=== PATIENT | male | born 1955 | race Caucasian/White ===

== ENCOUNTER 2018-08-10 22:11 | Inpatient (IN) | payer SELFPAY, MEDICARE ==
[2018-08-10] MEDS: DOCUSATE SODIUM 100 MG CAP PO
[~2018-08-10 22:11] MED LIST: HEPARIN SOD (PORCINE) 5000 UNITS/ML VIAL SC
[2018-08-10] MEDS: NS 1,000 ML IV (22:30)
[2018-08-10] MEDS ORDERED: ISOVUE-370 76% 100ML VIAL (Q9967) As Ordered (22:39)
[2018-08-10 22:41] LABS: HEMATOCRIT 50.3 % (42.0-52.0); HEMOGLOBIN 17.2 g/dl (13.5-17.5); MEAN CORPUSCULAR HEMOGLOBIN 32.6 pg (27.0-33.0); MEAN CORPUSCULAR HGB CONC 34.2 g/dl (32.0-36.5); MEAN CORPUSCULAR VOLUME 95.4 fl (80.0-96.0); PLATELET COUNT, AUTOMATED 262 10^3/uL (150-450); RED BLOOD COUNT 5.27 10^6/uL (4.30-6.10); RED CELL DISTRIBUTION WIDTH 12.2 % (11.5-14.5)
[2018-08-10 22:45] LABS: POSITIVE DIFF POS FLAG
[2018-08-10 22:46] LABS: ADD MANUAL DIFFER YES; DIFF SLIDE NUMBER 184
[2018-08-10 22:52] LABS: INR 1.03; PROTHROMBIN TIME 13.6 SECONDS (12.1-14.4)
[2018-08-10 22:53] LABS: PARTIAL THROMBOPLASTIN TIME 25.3 SECONDS (25.4-37.6)
[2018-08-10 23:05] LABS: ALBUMIN 4.6 GM/DL (3.2-5.2); ALBUMIN/GLOBULIN RATIO 1.48 (1.00-1.93); ALKALINE PHOSPHATASE 98 U/L (45-117); ALT/SGPT 35 U/L (12-78); ANION GAP 10 MEQ/L (8-16); AST/SGOT 34 U/L (7-37); BILIRUBIN,DIRECT 0.2 MG/DL (0.0-0.2); BILIRUBIN,TOTAL 0.6 MG/DL (0.2-1.0); BLOOD UREA NITROGEN 10 MG/DL (7-18); CALCIUM LEVEL 9.2 MG/DL (8.8-10.2); CARBON DIOXIDE LEVEL 28 MEQ/L (21-32); CHLORIDE LEVEL 99 MEQ/L (98-107); CREATININE FOR GFR 0.86 MG/DL (0.70-1.30); ETHYL ALCOHOL (ETHANOL) 0.178 % (0.000-0.010); GLOMERULAR FILTRATION RATE > 60.0 (>49); GLUCOSE, FASTING 111 MG/DL (70-100); LIPASE 89 U/L (73-393); POTASSIUM SERUM 3.7 MEQ/L (3.5-5.1); SODIUM LEVEL 137 MEQ/L (136-145); TOTAL PROTEIN 7.7 GM/DL (6.4-8.2)
[2018-08-10 23:06] LABS: ATYPICAL LYMPH 9 % (0-5); EOSINOPHILS 3 % (0-5); LYMPHOCYTES 28 % (16-52); MONOCYTES 4 % (0-8); NEUTROPHILS 56 % (35-75); PLATELET ESTIMATE NORMAL (NORMAL)
[2018-08-10] MEDS ORDERED: FLUMAZENIL 0.5 MG/5 ML VIAL As Ordered (23:09)
[2018-08-10] MEDS ORDERED: MIDAZOLAM INJ 2 MG/2 ML VIAL (J2250) As Ordered ×4 (23:09→23:29)
[2018-08-10] MEDS ORDERED: LIDOCAINE 1% MDV 20ML VIAL As Ordered (23:10)
[2018-08-10] MEDS ORDERED: BISACODYL 10 MG SUPP PR (23:15)
[2018-08-10] MEDS ORDERED: PERCOCET 5MG/325MG TAB PO (23:15)
[2018-08-10] MEDS ORDERED: ONDANSETRON 4MG/2ML VIAL (J2405) IV (23:15)
[2018-08-10] MEDS ORDERED: LEVALBUTEROL 1.25 MG/0.5 ML CONCENTRATE NEB NEB (23:15)
[2018-08-10] MEDS: LIDOCAINE 1% MDV 20ML VIAL SC (23:35)
[2018-08-10] MEDS: MIDAZOLAM INJ 2 MG/2 ML VIAL (J2250) IV (23:35)
[2018-08-11] MEDS: KETOROLAC 30 MG/ML VIAL (J1885) IV (00:01)
[2018-08-11] MEDS: KCL 20MEQ IN D5/NS 1000ML 1,000 ML IV (00:06)
[2018-08-11 00:24] LABS: ABG BASE EXCESS -6.7 (-2.0-2.0); ABG HCO3 23.1 MEQ/L (22.0-26.0); ABG O2 SATURATION 99.6 % (95.0-99.0); ABG STANDARD HCO3 19.2 MEQ/L (22.0-26.0); ABG TOTAL CO2 25.1 MEQ/L (23.0-31.0)
[2018-08-11 00:26] LABS: ABG PARTIAL PRESSURE CO2 64.2 mmHg (35.0-45.0); ABG pH (ARTERIAL) 7.174 UNITS (7.350-7.450)
[2018-08-11] MEDS ORDERED: FLUMAZENIL 0.5 MG/5 ML VIAL As Ordered (00:35)
[2018-08-11] MEDS: FLUMAZENIL 0.5 MG/5 ML VIAL IV (00:45)
[2018-08-11 01:51] LABS: AMYLASE 42 U/L (25-115)
[2018-08-11 01:54] LABS: AMMONIA 36 uMOL/L (<32)
[2018-08-11 01:54] LABS: ABG BASE EXCESS -4.4 (-2.0-2.0); ABG HCO3 21.9 MEQ/L (22.0-26.0); ABG O2 SATURATION 94.4 % (95.0-99.0); ABG PARTIAL PRESSURE CO2 44.8 mmHg (35.0-45.0); ABG STANDARD HCO3 20.8 MEQ/L (22.0-26.0); ABG TOTAL CO2 23.3 MEQ/L (23.0-31.0); ABG pH (ARTERIAL) 7.308 UNITS (7.350-7.450)
[2018-08-11] MEDS ORDERED: LEVALBUTEROL 1.25 MG/0.5 ML CONCENTRATE NEB NEB (02:00)
[2018-08-11] MEDS ORDERED: LORazepam 2 MG/ML VIAL (J2060) IV ×2 (02:30→03:00)
[2018-08-11 04:33] LABS: BASO % 0.2 % (0.0-1.0); EOS % 0.1 % (0.0-3.0); HEMATOCRIT 42.9 % (42.0-52.0); IMMATURE GRANULOCYTE % 0.5 % (0-3.0); LYMPH % 7.8 % (24.0-44.0); MEAN CORPUSCULAR HEMOGLOBIN 32.2 pg (27.0-33.0); MEAN CORPUSCULAR HGB CONC 33.8 g/dl (32.0-36.5); MEAN CORPUSCULAR VOLUME 95.1 fl (80.0-96.0); MONO # 1.4 10^3/uL (0.0-0.8); MONO % 10.7 % (0.0-5.0); NEUTROPHILS # 10.6 10^3/uL (1.8-7.7); NEUTROPHILS % 80.7 % (36.0-66.0); PLATELET COUNT, AUTOMATED 209 10^3/uL (150-450); RED BLOOD COUNT 4.51 10^6/uL (4.30-6.10); RED CELL DISTRIBUTION WIDTH 12.4 % (11.5-14.5); WHITE BLOOD COUNT 13.1 10^3/uL (4.0-10.0)
[2018-08-11 04:39] LABS: HEMOGLOBIN 14.5 g/dl (13.5-17.5)
[2018-08-11] MEDS: MULTIVITAMIN -ADULT INJECTION 10 ML, THIAMINE INJection 100 MG, FOLIC ACID 1 MG in NS 1... IV (04:49)
[2018-08-11 04:54] LABS: ANION GAP 8 MEQ/L (8-16); BLOOD UREA NITROGEN 11 MG/DL (7-18); CALCIUM LEVEL 7.9 MG/DL (8.8-10.2); CARBON DIOXIDE LEVEL 25 MEQ/L (21-32); CHLORIDE LEVEL 105 MEQ/L (98-107); CREATININE FOR GFR 0.68 MG/DL (0.70-1.30); GLOMERULAR FILTRATION RATE > 60.0 (>49); GLUCOSE, FASTING 129 MG/DL (70-100); POTASSIUM SERUM 4.4 MEQ/L (3.5-5.1); SODIUM LEVEL 138 MEQ/L (136-145)
[2018-08-11] MEDS: OXAZEPAM 15 MG CAP PO ×3 (06:14→18:22)
[2018-08-11 06:19] LABS: ABG BASE EXCESS -0.9 (-2.0-2.0); ABG HCO3 24.5 MEQ/L (22.0-26.0); ABG O2 SATURATION 95.4 % (95.0-99.0); ABG PARTIAL PRESSURE CO2 42.9 mmHg (35.0-45.0); ABG PARTIAL PRESSURE O2 76.5 mmHg (75.0-100.0); ABG STANDARD HCO3 23.7 MEQ/L (22.0-26.0); ABG TOTAL CO2 25.8 MEQ/L (23.0-31.0); ABG pH (ARTERIAL) 7.374 UNITS (7.350-7.450)
[2018-08-11] MEDS: IPRATROPIUM 0.5MG/ALBUTEROL 2.5MG INH SOL UD 3ML (DUONEB)(J7620) NEB ×3 (07:41→19:43)
[2018-08-11] MEDS ORDERED: MOM 30ML SUSPENSION UDC PO ×2 (09:00)
[2018-08-11] MEDS: NICOTINE 21MG/24HR 1 EA TRANSDERMAL TD (09:00)
[2018-08-11] MEDS: PANTOPRAZOLE 40MG TAB (PROTONIX) PO (09:02)
[2018-08-11] MEDS: DOCUSATE SODIUM 100 MG CAP PO ×2 (09:02→21:20)
[2018-08-11] MEDS: D5W/LR 1,000 ML IV ×2 (09:03→22:55)
[2018-08-11 11:50] LABS: HEMATOCRIT 40.9 % (42.0-52.0); HEMOGLOBIN 13.8 g/dl (13.5-17.5); MEAN CORPUSCULAR HEMOGLOBIN 32.4 pg (27.0-33.0); MEAN CORPUSCULAR HGB CONC 33.7 g/dl (32.0-36.5); PLATELET COUNT, AUTOMATED 202 10^3/uL (150-450); RED BLOOD COUNT 4.26 10^6/uL (4.30-6.10); RED CELL DISTRIBUTION WIDTH 12.7 % (11.5-14.5); WHITE BLOOD COUNT 8.8 10^3/uL (4.0-10.0)
[2018-08-11] MEDS: NORCO, ANEXSIA 5/325MG TABLET (HYDROcodone/ACETAMINOPHEN) PO (15:23)
[2018-08-11] MEDS: THIAMINE 100 MG TAB PO (21:21)
[2018-08-11] MEDS: PERCOCET 5MG/325MG TAB PO (21:21)
[2018-08-12] MEDS: OXAZEPAM 15 MG CAP PO ×4 (00:13→20:13)
[2018-08-12] MEDS: IPRATROPIUM 0.5MG/ALBUTEROL 2.5MG INH SOL UD 3ML (DUONEB)(J7620) NEB ×4 (01:58→20:07)
[2018-08-12] MEDS: PERCOCET 5MG/325MG TAB PO ×2 (04:06→15:45)
[2018-08-12 04:13] LABS: BASO % 0.4 % (0.0-1.0); EOS # 0.1 10^3/uL (0.0-0.50); EOS % 1.7 % (0.0-3.0); HEMATOCRIT 38.2 % (42.0-52.0); HEMOGLOBIN 12.8 g/dl (13.5-17.5); IMMATURE GRANULOCYTE % 0.1 % (0-3.0); LYMPH # 1.2 10^3/uL (1.5-4.5); MEAN CORPUSCULAR HGB CONC 33.5 g/dl (32.0-36.5); MEAN CORPUSCULAR VOLUME 95.5 fl (80.0-96.0); MONO # 0.7 10^3/uL (0.0-0.8); MONO % 7.9 % (0.0-5.0); NEUTROPHILS # 6.4 10^3/uL (1.8-7.7); NEUTROPHILS % 75.9 % (36.0-66.0); PLATELET COUNT, AUTOMATED 163 10^3/uL (150-450); RED CELL DISTRIBUTION WIDTH 12.3 % (11.5-14.5); WHITE BLOOD COUNT 8.4 10^3/uL (4.0-10.0)
[2018-08-12 04:32] LABS: ANION GAP 4 MEQ/L (8-16); BLOOD UREA NITROGEN 12 MG/DL (7-18); CALCIUM LEVEL 7.8 MG/DL (8.8-10.2); CARBON DIOXIDE LEVEL 30 MEQ/L (21-32); CHLORIDE LEVEL 102 MEQ/L (98-107); CREATININE FOR GFR 0.59 MG/DL (0.70-1.30); GLOMERULAR FILTRATION RATE > 60.0 (>49); GLUCOSE, FASTING 131 MG/DL (70-100); POTASSIUM SERUM 3.7 MEQ/L (3.5-5.1); SODIUM LEVEL 136 MEQ/L (136-145)
[2018-08-12] MEDS ORDERED: THIAMINE 100 MG TAB PO (09:00)
[2018-08-12] MEDS: NICOTINE 21MG/24HR 1 EA TRANSDERMAL TD (09:09)
[2018-08-12] MEDS: DOCUSATE SODIUM 100 MG CAP PO ×2 (09:11→20:14)
[2018-08-12] MEDS: PANTOPRAZOLE 40MG TAB (PROTONIX) PO (09:12)
[2018-08-12] MEDS: FOLIC ACID 1 MG TAB PO (09:12)
[2018-08-12] MEDS: MULTIVITAMINS/MINERALS THERAP 1 TAB PO (09:12)
[2018-08-12] MEDS: THIAMINE 100 MG TAB PO ×2 (09:12→20:14)
[2018-08-12] MEDS: ACETAMINOPHEN TAB 650MG DOSE (2X325MG) PO ×2 (12:56→19:17)
[2018-08-12] MEDS: HEPARIN SOD (PORCINE) 5000 UNITS/ML VIAL SQ ×2 (12:56→20:14)
[2018-08-12] MEDS: cefTRIAXone SOD 1 GM in D5W MINI-BAG PLUS 50 ML IV (14:56)
[2018-08-12] MEDS: AZITHROMYCIN INJ 500 MG, VIAL MATE ADAPTER 1 EACH in D5W 250 ML IV (15:40)
[2018-08-13] MEDS: IPRATROPIUM 0.5MG/ALBUTEROL 2.5MG INH SOL UD 3ML (DUONEB)(J7620) NEB ×4 (02:00→19:31)
[2018-08-13 04:59] LABS: BASO # 0.1 10^3/uL (0.0-0.2); BASO % 0.5 % (0.0-1.0); EOS # 0.1 10^3/uL (0.0-0.50); IMMATURE GRANULOCYTE % 0.2 % (0-3.0); LYMPH # 0.9 10^3/uL (1.5-4.5); LYMPH % 7.9 % (24.0-44.0); MEAN CORPUSCULAR HEMOGLOBIN 32.1 pg (27.0-33.0); MEAN CORPUSCULAR HGB CONC 34.2 g/dl (32.0-36.5); MEAN CORPUSCULAR VOLUME 93.8 fl (80.0-96.0); MONO # 0.7 10^3/uL (0.0-0.8); MONO % 6.7 % (0.0-5.0); NEUTROPHILS % 83.7 % (36.0-66.0); PLATELET COUNT, AUTOMATED 155 10^3/uL (150-450); RED BLOOD COUNT 4.05 10^6/uL (4.30-6.10); RED CELL DISTRIBUTION WIDTH 12.1 % (11.5-14.5); WHITE BLOOD COUNT 10.7 10^3/uL (4.0-10.0)
[2018-08-13 05:17] LABS: ANION GAP 6 MEQ/L (8-16); BLOOD UREA NITROGEN 9 MG/DL (7-18); CALCIUM LEVEL 7.9 MG/DL (8.8-10.2); CARBON DIOXIDE LEVEL 27 MEQ/L (21-32); CHLORIDE LEVEL 101 MEQ/L (98-107); CREATININE FOR GFR 0.48 MG/DL (0.70-1.30); GLOMERULAR FILTRATION RATE > 60.0 (>49); GLUCOSE, FASTING 110 MG/DL (70-100); POTASSIUM SERUM 3.9 MEQ/L (3.5-5.1); SODIUM LEVEL 134 MEQ/L (136-145)
[2018-08-13] MEDS: OXAZEPAM 15 MG CAP PO ×3 (05:51→20:47)
[2018-08-13] MEDS: PERCOCET 5MG/325MG TAB PO ×2 (07:46→15:53)
[2018-08-13] MEDS: MULTIVITAMINS/MINERALS THERAP 1 TAB PO (08:57)
[2018-08-13] MEDS: DOCUSATE SODIUM 100 MG CAP PO ×2 (08:57→20:47)
[2018-08-13] MEDS: PANTOPRAZOLE 40MG TAB (PROTONIX) PO (08:57)
[2018-08-13] MEDS: FOLIC ACID 1 MG TAB PO (08:58)
[2018-08-13] MEDS: HEPARIN SOD (PORCINE) 5000 UNITS/ML VIAL SQ ×2 (08:58→20:47)
[2018-08-13] MEDS: THIAMINE 100 MG TAB PO ×2 (08:58→20:47)
[2018-08-13] MEDS: NICOTINE 21MG/24HR 1 EA TRANSDERMAL TD (08:59)
[2018-08-13] MEDS: AMPICILLIN SOD/SULBACTAM SOD 3 GM in D5W MINI-BAG PLUS 100 ML IV ×3 (10:52→20:48)
[2018-08-13] MEDS: AZITHROMYCIN INJ 500 MG, VIAL MATE ADAPTER 1 EACH in D5W 250 ML IV (15:46)
[2018-08-14] MEDS: IPRATROPIUM 0.5MG/ALBUTEROL 2.5MG INH SOL UD 3ML (DUONEB)(J7620) NEB ×4 (02:00→20:10)
[2018-08-14 04:50] LABS: BASO % 0.3 % (0.0-1.0); EOS # 0.4 10^3/uL (0.0-0.50); EOS % 3.9 % (0.0-3.0); HEMATOCRIT 36.2 % (42.0-52.0); HEMOGLOBIN 12.4 g/dl (13.5-17.5); IMMATURE GRANULOCYTE % 0.3 % (0-3.0); LYMPH % 11.4 % (24.0-44.0); MEAN CORPUSCULAR HEMOGLOBIN 32.3 pg (27.0-33.0); MEAN CORPUSCULAR HGB CONC 34.3 g/dl (32.0-36.5); MEAN CORPUSCULAR VOLUME 94.3 fl (80.0-96.0); MONO # 0.6 10^3/uL (0.0-0.8); MONO % 6.7 % (0.0-5.0); NEUTROPHILS # 6.9 10^3/uL (1.8-7.7); NEUTROPHILS % 77.4 % (36.0-66.0); PLATELET COUNT, AUTOMATED 168 10^3/uL (150-450); RED BLOOD COUNT 3.84 10^6/uL (4.30-6.10); RED CELL DISTRIBUTION WIDTH 12.1 % (11.5-14.5); WHITE BLOOD COUNT 8.9 10^3/uL (4.0-10.0)
[2018-08-14] MEDS: AMPICILLIN SOD/SULBACTAM SOD 3 GM in D5W MINI-BAG PLUS 100 ML IV ×4 (04:50→21:19)
[2018-08-14] MEDS: OXAZEPAM 15 MG CAP PO ×3 (04:51→21:14)
[2018-08-14] MEDS: PERCOCET 5MG/325MG TAB PO ×3 (04:53→21:18)
[2018-08-14 05:18] LABS: ANION GAP 6 MEQ/L (8-16); BLOOD UREA NITROGEN 12 MG/DL (7-18); CALCIUM LEVEL 7.9 MG/DL (8.8-10.2); CARBON DIOXIDE LEVEL 29 MEQ/L (21-32); CHLORIDE LEVEL 100 MEQ/L (98-107); CREATININE FOR GFR 0.56 MG/DL (0.70-1.30); GLOMERULAR FILTRATION RATE > 60.0 (>49); GLUCOSE, FASTING 92 MG/DL (70-100); POTASSIUM SERUM 3.7 MEQ/L (3.5-5.1); SODIUM LEVEL 135 MEQ/L (136-145)
[2018-08-14 05:49] LABS: BEDSIDE GLUCOSE 117 MG/DL (80-115)
[2018-08-14] MEDS: DOCUSATE SODIUM 100 MG CAP PO ×2 (09:00→21:14)
[2018-08-14] MEDS: PANTOPRAZOLE 40MG TAB (PROTONIX) PO (09:27)
[2018-08-14] MEDS: FOLIC ACID 1 MG TAB PO (09:27)
[2018-08-14] MEDS: MULTIVITAMINS/MINERALS THERAP 1 TAB PO (09:27)
[2018-08-14] MEDS: NICOTINE 21MG/24HR 1 EA TRANSDERMAL TD (09:27)
[2018-08-14] MEDS: THIAMINE 100 MG TAB PO ×2 (09:27→21:14)
[2018-08-14] MEDS: HEPARIN SOD (PORCINE) 5000 UNITS/ML VIAL SQ ×2 (09:28→21:14)
[2018-08-14] MEDS: AZITHROMYCIN INJ 500 MG, VIAL MATE ADAPTER 1 EACH in D5W 250 ML IV (16:26)
[2018-08-15] MEDS: IPRATROPIUM 0.5MG/ALBUTEROL 2.5MG INH SOL UD 3ML (DUONEB)(J7620) NEB ×4 (00:53→19:45)
[2018-08-15] MEDS: AMPICILLIN SOD/SULBACTAM SOD 3 GM in D5W MINI-BAG PLUS 100 ML IV (04:47)
[2018-08-15] MEDS: OXAZEPAM 15 MG CAP PO ×3 (04:59→22:25)
[2018-08-15] MEDS: PERCOCET 5MG/325MG TAB PO ×2 (04:59→22:25)
[2018-08-15 05:15] LABS: BASO % 0.6 % (0.0-1.0); EOS # 0.4 10^3/uL (0.0-0.50); EOS % 5.1 % (0.0-3.0); HEMOGLOBIN 12.4 g/dl (13.5-17.5); IMMATURE GRANULOCYTE % 0.3 % (0-3.0); LYMPH # 1.1 10^3/uL (1.5-4.5); LYMPH % 15.5 % (24.0-44.0); MEAN CORPUSCULAR HEMOGLOBIN 32.4 pg (27.0-33.0); MEAN CORPUSCULAR HGB CONC 34.4 g/dl (32.0-36.5); MONO # 0.6 10^3/uL (0.0-0.8); MONO % 8.3 % (0.0-5.0); NEUTROPHILS # 5.1 10^3/uL (1.8-7.7); NEUTROPHILS % 70.2 % (36.0-66.0); PLATELET COUNT, AUTOMATED 189 10^3/uL (150-450); RED BLOOD COUNT 3.83 10^6/uL (4.30-6.10); RED CELL DISTRIBUTION WIDTH 12.2 % (11.5-14.5); WHITE BLOOD COUNT 7.3 10^3/uL (4.0-10.0)
[2018-08-15 05:35] LABS: ANION GAP 3 MEQ/L (8-16); BLOOD UREA NITROGEN 13 MG/DL (7-18); C REACTIVE PROTEIN QUANTITATIV 7.37 MG/DL (0.00-0.30); CALCIUM LEVEL 7.9 MG/DL (8.8-10.2); CARBON DIOXIDE LEVEL 32 MEQ/L (21-32); CHLORIDE LEVEL 100 MEQ/L (98-107); CREATININE FOR GFR 0.46 MG/DL (0.70-1.30); GLOMERULAR FILTRATION RATE > 60.0 (>49); GLUCOSE, FASTING 81 MG/DL (70-100); POTASSIUM SERUM 3.6 MEQ/L (3.5-5.1); SODIUM LEVEL 135 MEQ/L (136-145)
[2018-08-15] MEDS: HEPARIN SOD (PORCINE) 5000 UNITS/ML VIAL SQ ×2 (10:00→20:10)
[2018-08-15] MEDS: AZITHROMYCIN 250 MG TAB PO (10:00)
[2018-08-15] MEDS: NICOTINE 21MG/24HR 1 EA TRANSDERMAL TD (10:00)
[2018-08-15] MEDS: MULTIVITAMINS/MINERALS THERAP 1 TAB PO (10:00)
[2018-08-15] MEDS: FOLIC ACID 1 MG TAB PO (10:01)
[2018-08-15] MEDS: PANTOPRAZOLE 40MG TAB (PROTONIX) PO (10:01)
[2018-08-15] MEDS: DOCUSATE SODIUM 100 MG CAP PO ×2 (10:01→20:09)
[2018-08-15] MEDS: AUGMENTIN 875 MG TAB PO ×2 (10:01→20:10)
[2018-08-15] MEDS: THIAMINE 100 MG TAB PO ×2 (10:01→20:09)
[2018-08-15] MEDS: guaiFENesin ER 600 MG TAB PO (18:40)
[2018-08-16] MEDS: IPRATROPIUM 0.5MG/ALBUTEROL 2.5MG INH SOL UD 3ML (DUONEB)(J7620) NEB ×2 (01:02→07:40)
[2018-08-16 05:08] LABS: BASO # 0.1 10^3/uL (0.0-0.2); BASO % 0.8 % (0.0-1.0); EOS # 0.3 10^3/uL (0.0-0.50); EOS % 5.1 % (0.0-3.0); HEMOGLOBIN 12.7 g/dl (13.5-17.5); IMMATURE GRANULOCYTE % 0.3 % (0-3.0); LYMPH # 1.2 10^3/uL (1.5-4.5); LYMPH % 18.5 % (24.0-44.0); MEAN CORPUSCULAR HEMOGLOBIN 32.6 pg (27.0-33.0); MEAN CORPUSCULAR HGB CONC 34.3 g/dl (32.0-36.5); MEAN CORPUSCULAR VOLUME 94.9 fl (80.0-96.0); MONO # 0.7 10^3/uL (0.0-0.8); MONO % 10.1 % (0.0-5.0); NEUTROPHILS # 4.2 10^3/uL (1.8-7.7); NEUTROPHILS % 65.2 % (36.0-66.0); PLATELET COUNT, AUTOMATED 215 10^3/uL (150-450); RED CELL DISTRIBUTION WIDTH 12.1 % (11.5-14.5); WHITE BLOOD COUNT 6.4 10^3/uL (4.0-10.0)
[2018-08-16 05:25] LABS: ANION GAP 6 MEQ/L (8-16); BLOOD UREA NITROGEN 13 MG/DL (7-18); CALCIUM LEVEL 8.1 MG/DL (8.8-10.2); CARBON DIOXIDE LEVEL 28 MEQ/L (21-32); CHLORIDE LEVEL 102 MEQ/L (98-107); CREATININE FOR GFR 0.53 MG/DL (0.70-1.30); GLOMERULAR FILTRATION RATE > 60.0 (>49); GLUCOSE, FASTING 86 MG/DL (70-100); POTASSIUM SERUM 3.8 MEQ/L (3.5-5.1); SODIUM LEVEL 136 MEQ/L (136-145)
[2018-08-16] MEDS: OXAZEPAM 15 MG CAP PO (06:14)
[2018-08-16] MEDS: HEPARIN SOD (PORCINE) 5000 UNITS/ML VIAL SQ (08:28)
[2018-08-16] MEDS: NICOTINE 21MG/24HR 1 EA TRANSDERMAL TD (08:28)
[2018-08-16] MEDS: guaiFENesin ER 600 MG TAB PO (08:29)
[2018-08-16] MEDS: MULTIVITAMINS/MINERALS THERAP 1 TAB PO (08:29)
[2018-08-16] MEDS: FOLIC ACID 1 MG TAB PO (08:29)
[2018-08-16] MEDS: THIAMINE 100 MG TAB PO (08:29)
[2018-08-16] MEDS: AZITHROMYCIN 250 MG TAB PO (08:29)
[2018-08-16] MEDS: PANTOPRAZOLE 40MG TAB (PROTONIX) PO (08:29)
[2018-08-16] MEDS: DOCUSATE SODIUM 100 MG CAP PO (08:31)
[2018-08-16] MEDS: PERCOCET 5MG/325MG TAB PO (08:31)
[2018-08-16] MEDS: AUGMENTIN 875 MG TAB PO (09:55)
[2018-08-16] MEDS: FLUBLOK(EGG FREE)(QUAD)INFLUENZA VACC 0.5ML SYRINGE (90682)18YRS&OLDER IM (09:59)
== END 2018-08-16 12:27 | disposition home or self-care (01) | DRG 135 ==
LOC: M ICU 08-15 20:27 → M ED 22:11 → M ICU 23:02
PROC: 0W9930Z Drainage of Right Pleural Cavity with Drainage Device, Percutaneous Approach (ICD-10-PCS; principal; 2018-08-10)
DX: S27.0XXA Traumatic pneumothorax, initial encounter (principal); J96.01 Acute respiratory failure with hypoxia; J69.0 Pneumonitis due to inhalation of food and vomit; S22.41XA Multiple fractures of ribs, right side, initial encounter for closed fracture; J44.9 Chronic obstructive pulmonary disease, unspecified; J96.02 Acute respiratory failure with hypercapnia; F10.229 Alcohol dependence with intoxication, unspecified; K59.00 Constipation, unspecified; F17.200 Nicotine dependence, unspecified, uncomplicated; R33.9 Retention of urine, unspecified; G47.33 Obstructive sleep apnea (adult) (pediatric); Z88.8 Allergy status to other drugs, medicaments and biological substances; Z91.19 Patient's noncompliance with other medical treatment and regimen; W17.89XA Other fall from one level to another, initial encounter; Y92.009 Unspecified place in unspecified non-institutional (private) residence as the place of occurrence of the external cause; T79.7XXA Traumatic subcutaneous emphysema, initial encounter

== ENCOUNTER → 2018-08-29 | Outpatient (CLI) | payer MEDICARE, SELFPAY ==
[~2018-08-29] MED LIST changes: +AMOX875T2 PO; +AZIT-12 PO; -HEPARIN SOD (PORCINE) 5000 UNITS/ML VIAL SC; +PERCOCET PO
--- NOTE | 2018-08-29 13:35 | REP ---
Chest x-ray: Two views. History: Pneumothorax. Comparison chest x-ray: August 16, 2018. Findings: There are fractures involving the posterolateral 8th and 9th ribs on the right side again noted. There is some pleural thickening at the right base laterally. Right hemidiaphragm is tented and slightly elevated as before. Minimal linear fibrosis is seen in the right base. Lung paniagua are otherwise clear. There is no evidence of pneumothorax on either side. There is straightening of the normal thoracic kyphosis on the lateral radiograph again noted. Heart is not enlarged. Impression: No pneumothorax seen. Pleuroparenchymal fibrotic changes right base. Healing right-sided rib fractures. Electronically Signed by Aaron Valladares MD 08/29/2018 03:07 P
== END ==
LOC: M SMT 09:31
PROVIDERS: ATTEND Thoracic Surgery (Cardiothoracic Vascular Surgery)
DX: J93.9 Pneumothorax, unspecified (principal); J84.10 Pulmonary fibrosis, unspecified; S22.42XD Multiple fractures of ribs, left side, subsequent encounter for fracture with routine healing; X58.XXXD Exposure to other specified factors, subsequent encounter; Y92.9 Unspecified place or not applicable

== ENCOUNTER 2020-10-21 10:03 | Inpatient (IN) | payer MEDICARE, OTHER, SELFPAY ==
[~2020-10-21] VITALS: Ht 167.6 cm; Wt 53.6 kg
[2020-10-21] MEDS ORDERED: NS 1,000 ML IV SCH (10:30)
[2020-10-21] MEDS: MORPHINE 4 MG/ML 1ML VIAL/SYRINGE (J2270) IV PRN ×2 (10:41→11:03)
[2020-10-21] MEDS ORDERED: ISOVUE-370 76% 100ML VIAL As Ordered ONE (10:49)
[2020-10-21 10:58] LABS: BASO # 0.1 10^3/uL (0.0-0.2); BASO % 0.5 % (0.0-1.0); EOS % 0.2 % (0.0-3.0); HEMATOCRIT 51.4 % (42.0-52.0); HEMOGLOBIN 17.1 g/dl (13.5-17.5); LYMPH # 1.5 10^3/uL (1.5-5.0); LYMPH % 8.5 % (24.0-44.0); MEAN CORPUSCULAR HEMOGLOBIN 31.5 pg (27.0-33.0); MEAN CORPUSCULAR HGB CONC 33.3 g/dl (32.0-36.5); MEAN CORPUSCULAR VOLUME 94.7 fl (80.0-96.0); MONO # 1.2 10^3/uL (0.0-0.8); MONO % 7.3 % (0.0-5.0); NEUTROPHILS # 14.2 10^3/uL (1.5-8.5); NEUTROPHILS % 82.9 % (36.0-66.0); PLATELET COUNT, AUTOMATED 280 10^3/uL (150-450); RED BLOOD COUNT 5.43 10^6/uL (4.30-6.10); WHITE BLOOD COUNT 17.1 10^3/uL (4.0-10.0)
--- NOTE | 2020-10-21 11:12 | REP ---
INDICATION: incarcerated right inguinal hernia. COMPARISON: None TECHNIQUE: Axial contrast-enhanced images from the lung bases to the pubic symphysis using 100 cc Isovue 370 intravenous contrast material. Coronal and sagittal reformations obtained. This CT examination was performed using the following dose reduction techniques: Automated exposure control, adjustment of mA and/or kv according to the patient's size, and the use of iterative reconstruction technique. FINDINGS: Dilated fluid-filled loops of small bowel with wall thickening and perienteric stranding are identified within the lower pelvis and extend into a moderate to large right inguinal hernia containing above-mentioned loops of bowel as well as mesenteric fat and moderate fluid. Are suspicious for obstructed incarcerated right inguinal hernia causing early bowel obstruction. The colon and remainder of the small bowel within the abdomen and upper pelvis appear essentially normal. No free air. No drainable collection/abscess. Liver, spleen, pancreas, gallbladder, bilateral adrenal glands and kidneys are normal. Further evaluation of the pelvis demonstrates distended bladder and prostatomegaly having a heterogeneous appearance with calcifications and findings to suggest prior prostate surgery. No free air. No significant adenopathy. No significant focal ascites. Atherosclerotic changes to the aorta and vasculature noted without aneurysm or dissection. Musculoskeletal structures demonstrate degenerative changes including chronic L5 spondylolysis without acute osseous abnormality. IMPRESSION: 1. Moderate to large right inguinal hernia including mesenteric fat, fluid, and dilated small bowel suggesting incarcerated hernia causing associated bowel obstruction with dilated loops of small bowel identified in the lower pelvis. No associated free air or significant free fluid/abscess. 2. Moderately distended bladder with evidence for heterogeneous mildly enlarged prostate gland. <Electronically signed by Remi Garrett > 10/21/20 [id number]
[2020-10-21] MEDS ORDERED: LABETALOL 100MG/20ML VIAL IV STA (11:19)
--- OUTSIDE RECORDS SUMMARY | 2020-10-21 11:22 | CCD ---
Author Author [facility] Organization [facility] Address Unknown Phone Unavailable Support Name Relationship Address Phone [facility] [place] [address] [facility] Next Of Kin [address] [place] [address] MEHNAZ HODGES Next Of Kin [address] [place] [address] [place] Next Of Kin Unknown Unavailable Re-disclosure Warning The records that you are about to access may contain information from federally-assisted alcohol or drug abuse programs. If such information is present, then the following federally mandated warning applies: This information has been disclosed to you from records protected by federal confidentiality rules (42 CFR part 2). The federal rules prohibit you from making any further disclosure of this information unless further disclosure is expressly permitted by the written consent of the person to whom it pertains or as otherwise permitted by 42 CFR part 2. A general authorization for the release of medical or other information is NOT sufficient for this purpose. The Federal rules restrict any use of the information to criminally investigate or prosecute any alcohol or drug abuse patient.The records that you are about to access may contain highly sensitive health information, the redisclosure of which is protected by Article 27-F of the [facility] Public Health law. If you continue you may have access to information: Regarding HIV / AIDS; Provided by facilities licensed or operated by the [facility] Office of Mental Health; or Provided by the [facility] Office for People With Developmental Disabilities. If such information is present, then the following [facility] mandated warning applies: This information has been disclosed to you from confidential records which are protected by state law. State law prohibits you from making any further disclosure of this information without the specific written consent of the person to whom it pertains, or as otherwise permitted by law. Any unauthorized further disclosure in violation of state law may result in a fine or custodial sentence or both. A general authorization for the release of medical or other information is NOT sufficient authorization for further disc losure. Family History Family Member Name Family Member Gender Family Member Status Date o f Status Description Data Source(s) Unknown Unknown Problem [facility] ([facility]) Insurance Providers Payer name Policy type / Coverage type Policy ID Covered green party ID Covered green party's relationship to chaney Policy Chaney Plan Information MEDICARE [id number] SP [id number] A SELF PAY ONLY [id number] [employer] [facility] [id number] [facility] [id number] MEDICAID [id number] S [id number] MEDICARE C [id number] S [id number] [place] Medicare Primary Self SELF PAY ONLY UNAVAILABLE UNAV AILABLE SELF PAY UNAVAILABLE SP UNAVAILA BLE MEDICAID [id number] SP [id number]
[2020-10-21] MEDS ORDERED: LORazepam 2 MG/ML VIAL IV STA (11:26)
[2020-10-21 12:36] LABS: RSV AMPLIFICATION NEGATIVE (NEGATIVE)
--- NOTE | 2020-10-21 13:22 | HPEPDOC ---
[facility] Medical History & Physical Date of Admission Oct 21, 2020 Date of Service: Oct 21, 2020 Attending Physician: Ruth Abel MD History and Physical CHIEF COMPLAINT: abdominal pain HISTORY OF PRESENT ILLNESS: Patient is a 65-year-old male with past medical history of tobacco use, alcohol use, inguinal hernia, BPH, COPD, hypertension who presented to [facility] emergency room with sudden severe pain in the right inguinal area early this morning. The patient states he has had an umbilical hernia on the right side for approximately 1 year. Normally the hernia would protrude out but would go back in relatively quickly with relaxing or stopping activity. This morning the patient woke up with 10 out of 10 pain, described as "pulling" at his right groin, pain was constant. The patient states that his normal tactics to get his hernia to go back in did not work this time. Later in the a.m. the patient told his the pain was severe and was continuing and decision was made to come to the emergency room. The patient also complained of some nausea, hot flashes, chills, diaphoresis, generalized weakness. He denied vomiting, shortness of breath or diarrhea. In the ER, VS showed BP systolic 227/111 with severe pain, other VS were stable. WBC 17K, lactic acid wnl. CT abd/pelvis: 1. Moderate to large right inguinal hernia including mesenteric fat, fluid, and dilated small bowel suggesting incarcerated hernia causing associated bowel obstruction with dilated loops of small bowel identified in the lower pelvis. No associated free air or significant free fluid/abscess. 2. Moderately distended bladder with evidence for heterogeneous mildly enlarged prostate gland. Surgery was called and evaluated in ER. They reduced hernia and this showed improvement in both pain of right groin and blood pressure. Due to worsening reoccurences with right inguinal hernia, decision was made for surgery to admit, medicine to consult. REVIEW OF SYSTEMS: Neg except mentioned above PAST MEDICAL HISTORY: BPH Tobacco use Alcohol use umbilical hernia COPD HTN PAST SURGICAL HISTORY: Prostate surgery oral surgery metal taken out of eye FAMILY HISTORY: Father: HTN. alive Mother: healthy, alive SOCIAL HISTORY: Smoker 20 small cigars daily for 40 years. Drinks 6+ 16 ounce beers daily, denies drug use. Unemployed, lives with . Dr. Paige PCP- has not seen in >2 yrs. ALLERGIES: Please see below. HOME MEDICATIONS: Please see below. PHYSICAL EXAMINATION: VS: Please see below CONSTITUTIONAL: thin male, no acute distress, resting comfortably, AAO x 3 EYES: PERRLA, EOM intact HENT, MOUTH: Normocephalic, atraumatic, moist mucous membranes NECK: SUPPLE, no JVD, no lymphadenopathy, no carotid bruit CV: Regular rate and rhythm, S1S2 normal, no murmurs/rubs/gallops RESPIRATORY: Clear to auscultation bilaterally, no rales/rhonchi/wheezes GI: BS positive in 4 quadrants, soft, nontender, nondistended, no rebound or guarding, no organomegaly : Right inguinal hernia present with coughing MUSCULOSKELETAL: Normal ROM. No cyanosis, clubbing, swelling, joint deformity, extremity edema INTEGUMENTARY: Intact, no rashes, no lesions, no erythema NEUROLOGIC: Cranial Nerves II-XII are intact, no focal deficits PSYCHIATRIC: Mood and affect are normal LABORATORY DATA: Please see below IMAGING: CT abd/pelvis: 1. Moderate to large right inguinal hernia including mesenteric fat, fluid, and dilated small bowel suggesting incarcerated hernia causing associated bowel obstruction with dilated loops of small bowel identified in the lower pelvis. No associated free air or significant free fluid/abscess. 2. Moderately distended bladder with evidence for heterogeneous mildly enlarged prostate gland. ASSESSMENT: 65-year-old male with past medical history of tobacco use, alcohol use, inguinal hernia, BPH, COPD, hypertension admitted under surgical service f or right incarcerated/strangulated inguinal hernia requiring repair. We are consulted for medical management. PLAN: Right incarcerated/strangulated inguinal hernia, s/p reduction in ER -WBC 17K, currently present with coughing, mild fullness of right groin -Pain currently improved s/p reduction -Plan per surgery: surgery on 10/22/20 -Pain control, diet per surgery -Surgery primary (Dr. Delgadillo) HTN -Prior diagnosis but not on meds -Starting on lisinopril 10 mg PO daily Tobacco use -Nicotine patch Alcohol use -CIWA protocol, ativan, thiamine, folate, MV COPD -albuterol PRN BPH -No home meds DVT px -Lovenox DISPOSITION: Thank you kindly for this consult. We will continue to follow this patient closely. Vital Signs Vital Signs Date Time Temp Pulse Resp B/P (MAP) Pulse Ox O2 Delivery O2 Flow Rate FiO2 10/21/20 12:48 68 96 Room Air 10/21/20 12:30 135/78 (97) 10/21/20 11:06 20 10/21/20 10:26 96.2 Laboratory Data Labs 24H Laboratory Tests 2 10/21/20 10:40: Immature Granulocyte % (Auto) 0.6, Neutrophils (%) (Auto) 82.9H, Lymphocytes (%) (Auto) 8.5L, Monocytes (%) (Auto) 7.3H, Eosinophils (%) (Auto) 0.2, Basophils (%) (Auto) 0.5, Neutrophils # (Auto) 14.2H, Lymphocytes # (Auto) 1.5, Monocytes # (Auto) 1.2H, Eosinophils # (Auto) 0.0, Basophils # (Auto) 0.1, Nucleated Red Blood Cells % (auto) 0.0 10/21/20 10:42: POC Glucose (Misc Panel) 156H, POC Sodium (Misc Panel) 136, POC Potassium (Misc Panel) 4.0, POC Chloride (Misc Panel) 103, POC Total CO2 (Misc Panel) 24.0, POC Blood Urea Nitrogen (Misc Panel 20, POC Ionized Calcium (Misc Panel) 3.8L, POC Creatinine (Misc Panel) 0.5L, POC Hematocrit (Misc Panel) 52.0H 10/21/20 11:24: Coronavirus (COVID-19)(PCR) NEGATIVE, Influenza Type A (RT-PCR) NEGATIVE, Influenza Type B (RT-PCR) NEGATIVE, Respiratory Syncytial Virus (PCR) NEGATIVE 10/21/20 11:41: POC Lactate (Misc Panel) 0.90 CBC/BMP Laboratory Tests 10/21/20 10:40 Home Medications No Active Prescriptions or Reported Meds Allergies Coded Allergies: bupropion (Verified Adverse Reaction, Intermediate, HALLUCINATIONS, 10/21/20) A-FIB/CHADSVASC A-FIB History Current/History of A-Fib/PAF?: No Current PO Anticoag Therapy: No Age/Risk Factor Scoring CHADSVASC: CHADSVASC Response (Comments) Value Age Risk Factor Age < 65 years old 0 Gender Risk Factor Male 0 Hx of CHF No 0 Hx of HTN Yes 1 Hx of Stroke/TIA/or VTE No 0 Hx of Diabetes No 0 Hx of Vascular Disease No 0 Total 1 Treatment Treatment ordered: Other Other anticoagulant ordered: Ruth Zapien MD Oct 21, 2020 13:22
[2020-10-21] MEDS ORDERED: NICOTINE 21MG/24HR 1 EA TRANSDERMAL TD ONE (13:30)
[2020-10-21] MEDS ORDERED: lisinopriL 10 MG TAB PO ONE (13:30)
[2020-10-21] MEDS ORDERED: lisinopriL 5 MG TAB PO ONE (13:30)
[2020-10-21] MEDS ORDERED: ALBUTEROL SULFATE 2.5 MG/0.5 ML INH NEB SOLN NEB PRN (14:15)
[2020-10-21] MEDS ORDERED: KETOROLAC 30 MG/ML 1ML VIAL IV PRN (14:30)
[2020-10-21] MEDS ORDERED: ONDANSETRON 4MG/2ML VIAL IV PRN (14:30)
[2020-10-21] MEDS ORDERED: NORCO, ANEXSIA 5/325MG TABLET (HYDROcodone/ACETAMINOPHEN) PO PRN (14:30)
--- OUTSIDE RECORDS SUMMARY | 2020-10-21 14:51 | CCD ---
Author Author [facility] Organization [facility] Address Unknown Phone Unavailable Support Name Relationship Address Phone [facility] [place] [address] [facility] Next Of Kin [address] [place] [address] MEHNAZ HODGES Next Of Kin [address] [place] [address] [place] Next Of Kin Unknown Unavailable Re-disclosure [...] is protected by Article 27-F of the [facility] Public Health law. If you continue you may have access to information: Regarding HIV / AIDS; Provided by facilities licensed or operated by the [facility] Office of Mental Health; or Provided by the [facility] Office for People With Developmental Disabilities. If such information is present, then the following [facility] mandated warning applies: This information has [...] law may result in a fine or nursing home sentence or both. A general authorization for the release of medical or other information is NOT sufficient authorization for further disc losure. Family History Family Member Name Family Member Gender Family Member Status Date o f Status Description Data Source(s) Unknown Unknown Problem [facility] ([facility]) Insurance Providers Payer name Policy type / Coverage type Policy ID Covered libertarian ID Covered libertarian's relationship to chaney Policy Chaney Plan Information MEDICARE [id number] SP [id number] A [facility] [id number] [facility] [id number] SELF PAY ONLY [id number] MEDICAID M [id number] S [id number] MEDICARE C [id number] S [id number] [place] Primary Self SELF PAY ONLY UNAVAILABLE UNAV AILABLE SELF PAY UNAVAILABLE SP UNAVAILA BLE MEDICAID [id number] SP [id number]
[2020-10-21] MEDS ORDERED: LORazepam 2 MG TAB PO PRN (15:00)
[2020-10-21 15:55] VITALS: BP 174/92
[2020-10-21 16:39] LABS: INR 1.05; PARTIAL THROMBOPLASTIN TIME 28.1 SECONDS (24.2-38.5); PROTHROMBIN TIME 13.9 SECONDS (12.5-14.3)
[2020-10-21] MEDS: PIPERACILLIN/TAZOBACTAM SOD 3.375 GM in D5W MINI-BAG PLUS 50 ML IV SCH ×2 (16:41→20:23)
[2020-10-21 16:47] LABS: ALT/SGPT 26 U/L (12-78); BILIRUBIN,TOTAL 0.8 MG/DL (0.2-1.0); BLOOD UREA NITROGEN 18 MG/DL (7-18); CALCIUM LEVEL 8.4 MG/DL (8.8-10.2); CARBON DIOXIDE LEVEL 27 MEQ/L (21-32); CHLORIDE LEVEL 104 MEQ/L (98-107); GLOMERULAR FILTRATION RATE > 60.0 (>49); GLUCOSE, FASTING 124 MG/DL (70-100); POTASSIUM SERUM 5.1 MEQ/L (3.5-5.1); SODIUM LEVEL 138 MEQ/L (136-145); TOTAL PROTEIN 6.1 GM/DL (6.4-8.2)
[2020-10-21 16:48] LABS: ALBUMIN 3.5 GM/DL (3.2-5.2)
[2020-10-21] MEDS: PANTOPRAZOLE 40MG TAB (PROTONIX) PO SCH (16:50)
[2020-10-21 17:56] VITALS: BP 158/86
[2020-10-21] MEDS: THIAMINE 100 MG TAB PO SCH (20:23)
[2020-10-21] MEDS: NS 1,000 ML IV SCH (20:23)
[2020-10-21] MEDS: SENOKOT S TAB PO SCH (20:23)
--- NOTE | 2020-10-21 20:33 | ECGEPIP ---
[facility] - ED Test Date: 2020-10-21 Pat Name: LUCERO HODGES Department: Room: [place] [address] Gender: Male Visual Manager: el : [id number] Requested By: Mauricio Whitlock Order Number: [id number] Reading MD: Mauricio Bernardo Measurements Intervals Williamson Rate: 79 P: 89 CO: 204 QRS: 95 QRSD: 94 T: 70 QT: 358 QTc: 411 Interpretive Statements SINUS RHYTHM WITH MARKED SINUS ARRHYTHMIA BORDERLINE RIGHT AXIS DEVIATION INCOMPLETE RIGHT BUNDLE BRANCH BLOCK NO PRIORS FOR COMPARISON Electronically Signed on 10-21-2020 20:33:03 EST by Mauricio Bernardo
[2020-10-21 22:00] VITALS: BP 156/85
[2020-10-22] VITALS (13 sets, daily range): BP systolic 134–194; BP diastolic 78–98
[2020-10-22] MEDS: PIPERACILLIN/TAZOBACTAM SOD 3.375 GM in D5W MINI-BAG PLUS 50 ML IV SCH ×4 (02:45→20:05)
[2020-10-22] MEDS: NS 1,000 ML IV SCH ×4 (05:42→20:06)
[2020-10-22 05:54] LABS: MEAN CORPUSCULAR HEMOGLOBIN 31.6 pg (27.0-33.0); MEAN CORPUSCULAR HGB CONC 33.3 g/dl (32.0-36.5); MEAN CORPUSCULAR VOLUME 94.7 fl (80.0-96.0); PLATELET COUNT, AUTOMATED 214 10^3/uL (150-450); RED BLOOD COUNT 4.75 10^6/uL (4.30-6.10); WHITE BLOOD COUNT 14.1 10^3/uL (4.0-10.0)
[2020-10-22 06:22] LABS: BLOOD UREA NITROGEN 15 MG/DL (7-18); CALCIUM LEVEL 7.7 MG/DL (8.8-10.2); CARBON DIOXIDE LEVEL 25 MEQ/L (21-32); CHLORIDE LEVEL 103 MEQ/L (98-107); CREATININE FOR GFR 0.62 MG/DL (0.70-1.30); GLOMERULAR FILTRATION RATE > 60.0 (>49); GLUCOSE, FASTING 113 MG/DL (70-100); POTASSIUM SERUM 3.9 MEQ/L (3.5-5.1); SODIUM LEVEL 136 MEQ/L (136-145)
[2020-10-22] MEDS ORDERED: propofoL 200 MG/20 ML VIAL As Ordered ONE (08:33)
[2020-10-22] MEDS ORDERED: LIDOCAINE 2% 100MG/5ML SDV (FOR ANES.) As Ordered ONE (08:33)
[2020-10-22] MEDS ORDERED: ROCURONIUM BROMIDE 50 MG/5 ML VIAL As Ordered ONE ×2 (08:33→10:09)
[2020-10-22] MEDS ORDERED: fentaNYL 100 MCG/2 ML INJECTION (J3010) As Ordered ONE ×2 (08:34→10:04)
[2020-10-22] MEDS ORDERED: ONDANSETRON 4MG/2ML VIAL As Ordered ONE (08:34)
[2020-10-22] MEDS ORDERED: dexameTHASONE 4 MG/ML 1ML VIAL (J1100 PER 1MG) As Ordered ONE (08:34)
[2020-10-22] MEDS ORDERED: MIDAZOLAM INJ 2MG/2ML VIAL (J2250 PER 1MG) As Ordered ONE (08:34)
[2020-10-22] MEDS ORDERED: BUPIVACAINE/EPIN 0.25% 30 ML VIAL As Ordered ONE (09:07)
--- NOTE | 2020-10-22 09:27 | IPNPDOC ---
Text Note Date of Service The patient was seen on 10/22/20. NOTE No acute events overnight. The hernia is still reduced. No complaints this am other than some blood in his stool. Plan is for OR this am for incarcerated hernia repair. VSSAF NAD abd - soft, nt, nd, right inguinal hernia is out again labs - below A) 65y/o male with incarcerated RIH partially reduced in the ER last evening. P) OR for RA RIH repair this am plan on d/c home this afternoon Larry Delgadillo DO VS,Mekhi, I+O VS, Avivae, I+O Laboratory Tests 10/21/20 10:40 10/21/20 16:08 10/22/20 05:29 Vital Signs Date Time Temp Pulse Resp B/P (MAP) Pulse Ox O2 Delivery O2 Flow Rate FiO2 10/22/20 06:00 97.3 66 20 134/78 (96) 94 10/21/20 15:55 Room Air I&O- Last 24 Hours up to 6 AM 10/22/20 06:00 Intake Total 1360 ml Output Total 1025 ml Balance 335 ml JESSIE DELGADILLO DO Oct 22, 2020 09:27
[2020-10-22] MEDS ORDERED: PHENYLephrine 500MCG 5ML (100MCG/ML) SYRINGE As Ordered ONE ×2 (09:49→10:26)
[2020-10-22] MEDS ORDERED: ZOSYN 3.375GM VIAL (J2543) As Ordered ONE (10:08)
[2020-10-22] MEDS ORDERED: ACETAMINOPHEN 1000MG 100ML IV BTL (OFIRMEV) (J0131 PER 10MG) As Ordered ONE (10:28)
[2020-10-22] MEDS ORDERED: KETOROLAC 60MG 2ML VIAL As Ordered ONE (10:30)
[2020-10-22] MEDS ORDERED: SUGAMMADEX SODIUM 500 MG/5 ML VIAL (BRIDION) As Ordered ONE ×2 (10:31→12:07)
[2020-10-22] MEDS ORDERED: LR 1,000 ML IV SCH (11:30)
[2020-10-22] MEDS ORDERED: fentaNYL 100 MCG/2 ML INJECTION (J3010) IV PRN (11:30)
[2020-10-22] MEDS ORDERED: MEPERIDINE INJ 25 MG/ML VIAL (J2175) IV PRN (11:30)
[2020-10-22] MEDS ORDERED: METOCLOPRAMIDE INJ 10MG/2ML VIAL (J2765 PER 1) IV PRN (11:30)
[2020-10-22] MEDS ORDERED: ONDANSETRON 4MG/2ML VIAL IV PRN (11:30)
[2020-10-22] MEDS ORDERED: oxyCODONE 5MG TAB PO PRN (11:30)
--- NOTE | 2020-10-22 12:07 | RO ---
OPERATIVE NOTE DATE OF OPERATION: 10/21/2020 PREOPERATIVE DIAGNOSIS: Incarcerated right inguinal hernia. POSTOPERATIVE DIAGNOSIS: Incarcerated right inguinal hernia with ischemic small bowel and ileus. PROCEDURE: Diagnostic laparoscopy. SURGEON: Elliot Delgadillo DO STATION SUPERINTENDENT: Brook Valentin ANESTHESIA: General. EBL: 1. COMPLICATIONS: None. INDICATIONS FOR PROCEDURE: The patient is a 65-year-old male who presented with incarcerated, possibly strangulated right inguinal hernia. In the emergency room yesterday it was able to be reduced at the bedside. He was kept overnight to plan for surgery this morning. Overnight he did have a little bit of maroon stools raising concern for possible ischemia. However, he had no pain of any kind and his hernia was still reduced, belly was soft so plan was to continue and proceed with surgery today. Risks and benefits of the procedure were not limited to but including bleeding, infection, hernia formation, hernia recurrence, damage to surrounding structures and need for further surgery were discussed at length with the patient and informed consent was obtained and procedure planned. DESCRIPTION OF PROCEDURE: The patient was brought back to operating room 7, after sufficient sedation the abdomen was sterilely prepped and draped. Time out was done to confirm proper patient, proper procedure. Following that 8 mm incision was made in the left upper quadrant and Veress needle inserted, abdomen insufflated to 15 mmHg. Veress needle was removed and 8 mm Optiview port was used to gain access to the abdomen. Once the abdomen was entered I was unable to see anything other than dilated loops of small bowel. After repositioning the bed I was able to get more 8 mm ports in, one in midline and one in the right upper quadrant. The abdomen was examined. At this point I decided against doing the hernia operation due to high risk of bacterial translocation from his bowel plus due to the dilated loops of bowels made it difficult to see. However, I wanted to run through the small bowel and make sure there was no necrosis or ischemic loops that needed to be addressed at this time. I was able to trace the small bowel back, find the loops that were very hyperemic and edematous but no signs of any necrosis. Plan at this time was to deflate the abdomen, let him rest of the floor for a couple of days and consider surgery next week once this has calmed down.
--- NOTE | 2020-10-22 12:34 | HPE ---
HISTORY AND PHYSICAL DATE OF ADMISSION: 10/21/20 CHIEF COMPLAINT: Abdominal pain. HISTORY OF PRESENT ILLNESS: The patient is a 65-year-old male with a history of tobacco and alcohol abuse as well as a known right inguinal hernia. He presented with sharp pain in the right groin and unable to reduce it himself. He has had the hernia for well over a year. It has been able to pop out throughout the day, but when he sits down or lies down it usually calms down and relaxes and goes back inside. This time; however, it was unable to do so. He had a CT scan showing incarcerated possibly strangulated loops of small bowel within the right groin as well as an elevated white count and on exam in the Emergency Room he was in severe pain, no improvement with ice or relaxation. Within a minute of steady light pressure around the neck of the hernia I was able to reduce it at the bedside in the ER which gave him some immediate relief of this pain. Because of the size of the hernia and the fact that it wants to pop back out immediately recommendation is to proceed with keeping him in the hospital overnight and plan on repair tomorrow morning. He understood and agreed to the plan. PAST MEDICAL HISTORY: 1. BPH. 2. Tobacco abuse. 3. Alcohol abuse. 4. Inguinal hernia. 5. COPD. 6. Hypertension. PAST SURGICAL HISTORY: 1. Prostate surgery. 2. Oral surgery. 3. Metal taken out of his eye. SOCIAL HISTORY: Smokes daily. Alcohol daily as well. Denies drug abuse. FAMILY HISTORY: Noncontributory. ALLERGIES: Bupropion. MEDICATIONS: Please see Med Rec. REVIEW OF SYSTEMS: Pertinent positives as per the HPI. PHYSICAL EXAMINATION: General: Patient is A&O times 3, in no acute distress. Vitals: Temp 96.2, pulse 76, respirations 20, blood pressure 225/105, pulse ox 99% on room air. HEENT: Pupils equal, round and reactive to light and accommodation. Heart: S1 and S2 regular rate and rhythm. Lungs: Clear to auscultation bilaterally. Abdomen: Soft, tender to palpation in the right groin. There is erythema on the right scrotum, a large incarcerated inguinal hernia on the right side that was able to be reduced after a few minutes of steady pressure. Extremities: No clubbing, cyanosis or edema. LABORATORY DATA: White count 17.1, hemoglobin 17.1, platelets 280. Potassium 5.1, creatinine 0.8. COVID negative. IMAGING: CT abdomen and pelvis shows marked large right inguinal hernia with mesenteric fat, fluid and dilated small bowel suggesting incarcerated hernia causing associated bowel obstruction with dilated loops of small bowel identified in the lower pelvis as well, no free air or free fluid or abscess, a moderately distended bladder with evidence for heterogeneous mildly enlarged prostate gland. ASSESSMENT AND PLAN: Patient is a 65-year-old male with an incarcerated possibly strangulated right inguinal hernia status post reduction in the Emergency Room. Plan is to keep him overnight, plan for robotic repair tomorrow morning. Risks and benefits of procedure were discussed in detail with the patient. He understood and agreed to stay. Hospitalist has also been consulted to get him on some blood pressure management and they will also watch him for DTs during the stay. Likely post-operatively we will plan for discharge.
[2020-10-22] MEDS: SENOKOT S TAB PO SCH ×2 (14:05→20:06)
[2020-10-22] MEDS: lisinopriL 10 MG TAB PO SCH (14:05)
[2020-10-22] MEDS: FOLIC ACID 1 MG TAB PO SCH (14:05)
[2020-10-22] MEDS: PANTOPRAZOLE 40MG TAB (PROTONIX) PO SCH (14:05)
[2020-10-22] MEDS: MULTIVITAMINS/MINERALS THERAP 1 TAB PO SCH (14:05)
[2020-10-22] MEDS: THIAMINE 100 MG TAB PO SCH ×2 (14:06→20:06)
[2020-10-22] MEDS: ENOXAPARIN 40MG/0.4ML SYRINGE (J1650 PER 10MG) SC SCH (14:06)
[2020-10-22] MEDS: NICOTINE 21MG/24HR 1 EA TRANSDERMAL TD SCH (14:12)
--- NOTE | 2020-10-22 15:01 | IPNPDOC ---
Date Seen The patient was seen on 10/22/20. Progress Note SUBJECTIVE: POD 0 diagnostic laproscopy, found incarcerated right inguinal hernia with ischemic small bowel and ileus. Plan was to not proceed with other surgery today but watch for several days and poss discharge to do resection surgery at later time next week per surgery. Pain controlled. He denies incr SOB, chest pain. OBJECTIVE: PHYSICAL EXAMINATION: VS: Please see below CONSTITUTIONAL: thin male, no acute distress, resting comfortably, AAO x 3 EYES: PERRLA, EOM intact HENT, MOUTH: Normocephalic, atraumatic, moist mucous membranes NECK: SUPPLE, no JVD, no lymphadenopathy, no carotid bruit CV: Regular rate and rhythm, S1S2 normal, no murmurs/rubs/gallops RESPIRATORY: Clear to auscultation bilaterally, no rales/rhonchi/wheezes GI: Abdominal incisions appear clean, nonsuppurative. BS positive in 4 quadrants, soft, nondistended, no rebound or guarding, no organomegaly : Right inguinal hernia present with coughing MUSCULOSKELETAL: Normal ROM. No cyanosis, clubbing, swelling, joint deformity, extremity edema INTEGUMENTARY: Intact, no rashes, no lesions, no erythema NEUROLOGIC: Cranial Nerves II-XII are intact, no focal deficits PSYCHIATRIC: Mood and affect are normal LABORATORY DATA: Please see below IMAGING: CT abd/pelvis: 1. Moderate to large right inguinal hernia including mesenteric fat, fluid, and dilated small bowel suggesting incarcerated hernia causing associated bowel obstruction with dilated loops of small bowel identified in the lower pelvis. No associated free air or significant free fluid/abscess. 2. Moderately distended bladder with evidence for heterogeneous mildly enlarged prostate gland. ASSESSMENT: 65-year-old male with past medical history of tobacco use, alcohol use, inguinal hernia, BPH, COPD, hypertension admitted under surgical service for right incarcerated/strangulated inguinal hernia requiring repair. We are consulted for medical management. PLAN: Incarcerated right inguinal hernia with ischemic small bowel and ileus -POD 0 for diagnostic laproscopy. Plan was to not proceed with resection today but watch for several days and poss discharge to do resection surgery at later time next week per surgery -WBC 14.1K -Pain control, diet per surgery -Surgery primary (Dr. Delgadillo) HTN -Stable -C/w lisinopril 10 mg PO daily Tobacco use -Nicotine patch Alcohol use -No s/s of alcohol w/d -CIWA protocol, ativan, thiamine, folate, MV COPD -albuterol PRN BPH -No home meds DVT px -Lovenox VS, I&O, 24H, Fishbone Vital Signs/I&O Vital Signs Date Time Temp Pulse Resp B/P (MAP) Pulse Ox O2 Delivery O2 Flow Rate FiO2 10/22/20 14:05 165/80 10/22/20 13:36 97.8 72 18 95 10/22/20 12:05 Nasal Cannula 2 I&O- Last 24 Hours up to 6 AM 10/22/20 06:00 Intake Total 1360 ml Output Total 1025 ml Balance 335 ml Laboratory Data 24H LABS Laboratory Tests 2 10/21/20 16:08: Prothrombin Time 13.9, Prothromb Time International Ratio 1.05, Activated Partial Thromboplast Time 28.1, Anion Gap 7L, Glomerular Filtration Rate > 60.0, Calcium Level 8.4L, Total Bilirubin 0.8, Aspartate Amino Transf (AST/SGOT) 18, Alanine Aminotransferase (ALT/SGPT) 26, Alkaline Phosphatase 82, Total Protein 6.1L, Albumin 3.5, Albumin/Globulin Ratio 1.3 10/22/20 05:29: Anion Gap 8, Glomerular Filtration Rate > 60.0, Calcium Level 7.7L, Nucleated Red Blood Cells % (auto) 0.0 CBC/BMP Laboratory Tests 10/21/20 16:08 10/22/20 05:29 Current Medications Current Medications Medications (Trade) Dose Ordered Sig/Salvador Route PRN Reason Start Time Stop Time Status Last Admin Dose Admin Acetaminophen/ Hydrocodone Bitart ([place], Anexsia 5/325) 1 tab Q6H PRN PO MILD/MODERATE PAIN (PS 1-7) 10/21/20 14:30 Acetaminophen/ Hydrocodone Bitart ([place], Anexsia 5/325) 2 tab Q6H PRN PO SEVERE PAIN (PS 8-10) 10/21/20 14:30 Albuterol Sulfate (Proventil Neb) 2.5 mg Q2HP PRN NEB SOB/WHEEZING 10/21/20 14:15 Enoxaparin Sodium (Lovenox) 40 mg DAILY SC 10/22/20 09:00 10/22/20 14:06 Fentanyl Citrate (Sublimaze) 25 mcg Q5MP PRN IV PAIN LEVEL 5-10 10/22/20 11:30 10/22/20 14:03 DC Folic Acid (Folic Acid) 1 mg DAILY PO 10/22/20 09:00 10/22/20 14:05 Home Med (Med Rec Complete!) ASDIRECTED XX 10/21/20 12:30 10/21/20 12:31 DC Ketorolac Tromethamine (ToRADol) 30 mg Q6HP PRN IV MILD/MODERATE PAIN (PS 1-7) 10/21/20 14:30 10/26/20 14:29 Labetalol HCl (Normodyne, Trandate) 20 mg STAT STAT IV 10/21/20 11:19 10/21/20 11:20 DC 10/21/20 11:25 Lactated Ringer's 1,000 ml @ 100 mls/hr Q10H IV 10/22/20 11:30 10/22/20 12:30 DC Lisinopril (Prinivil) 10 mg DAILY PO 10/22/20 09:00 10/22/20 14:05 Lorazepam (Ativan) 1 mg STAT STAT IV 10/21/20 11:26 10/21/20 11:27 Cancel Lorazepam (Ativan) 2 mg ASDIRECTED PRN PO SEE PROTOCOL 10/21/20 15:00 Meperidine HCl (Demerol) 12.5 mg Q5MP PRN IV SHIVERING 10/22/20 11:30 10/22/20 12:30 DC Metoclopramide HCl (REGLAN INJection) 10 mg Q6HP PRN IV NAUSEA OR VOMITING 10/22/20 11:30 10/22/20 12:30 DC Morphine Sulfate (Morphine Sulfate Inj) 4 mg Q30M PRN IV SEVERE PAIN (PS 8-10) 10/21/20 10:30 10/21/20 11:03 DC 10/21/20 11:03 Multivitamins (Theragram-M) 1 tab DAILY PO 10/22/20 09:00 10/22/20 14:05 Nicotine (Nicoderm Cq 21mg) 1 patch DAILY TD 10/22/20 09:00 10/22/20 14:12 Ondansetron HCl (ZOFRAN INJection) 4 mg Q4HP PRN IV NAUSEA OR VOMITING 10/22/20 11:30 10/22/20 12:30 DC Ondansetron HCl (ZOFRAN INJection) 4 mg Q6HP PRN IV NAUSEA OR VOMITING 10/21/20 14:30 Oxycodone HCl (Roxicodone, Oxyir) 5 mg ASDIRECTED PRN PO PAIN LEVEL 1-4 10/22/20 11:30 10/22/20 12:30 DC Pantoprazole Sodium (Protonix) 40 mg DAILY PO 10/21/20 09:00 10/22/20 14:05 Piperacillin Sod/ Tazobactam Sod 3.375 gm/Dextrose 50 ml @ 50 mls/hr Q6H IV 10/21/20 15:00 10/22/20 10:17 Senna/Docusate Sodium (Senokot S) 1 tab BID PO 10/21/20 21:00 10/22/20 14:05 Sodium Chloride 1,000 ml @ 100 mls/hr Q10H IV 10/21/20 10:30 10/21/20 14:31 DC 10/21/20 10:41 Sodium Chloride 1,000 ml @ 125 mls/hr Q8H IV 10/21/20 14:25 10/22/20 05:42 Thiamine HCl (Thiamine HCl) 100 mg BID PO 10/21/20 21:00 10/24/20 09:01 10/22/20 14:06 Allergies Coded Allergies: bupropion (Verified Adverse Reaction, Intermediate, HALLUCINATIONS, 10/21/20) Ruth Abel MD Oct 22, 2020 15:01
[2020-10-23] VITALS (7 sets, daily range): BP systolic 162–208; BP diastolic 82–103
[2020-10-23] MEDS: NORCO, ANEXSIA 5/325MG TABLET (HYDROcodone/ACETAMINOPHEN) PO PRN ×2 (01:21→15:47)
[2020-10-23] MEDS ORDERED: lisinopriL 10 MG TAB PO ONE (02:00)
[2020-10-23] MEDS: PIPERACILLIN/TAZOBACTAM SOD 3.375 GM in D5W MINI-BAG PLUS 50 ML IV SCH ×4 (02:19→20:44)
[2020-10-23] MEDS: SIMETHICONE 80 MG CHEW TAB PO SCH ×4 (02:19→18:51)
[2020-10-23 06:21] LABS: HEMATOCRIT 45.6 % (42.0-52.0); HEMOGLOBIN 15.3 g/dl (13.5-17.5); MEAN CORPUSCULAR HEMOGLOBIN 32.1 pg (27.0-33.0); MEAN CORPUSCULAR HGB CONC 33.6 g/dl (32.0-36.5); MEAN CORPUSCULAR VOLUME 95.8 fl (80.0-96.0); PLATELET COUNT, AUTOMATED 212 10^3/uL (150-450); RED BLOOD COUNT 4.76 10^6/uL (4.30-6.10); WHITE BLOOD COUNT 14.8 10^3/uL (4.0-10.0)
[2020-10-23] MEDS: NS 1,000 ML IV SCH ×2 (06:41→20:43)
[2020-10-23 06:42] LABS: BLOOD UREA NITROGEN 9 MG/DL (7-18); CALCIUM LEVEL 8.5 MG/DL (8.8-10.2); CARBON DIOXIDE LEVEL 28 MEQ/L (21-32); CHLORIDE LEVEL 105 MEQ/L (98-107); CREATININE FOR GFR 0.73 MG/DL (0.70-1.30); GLOMERULAR FILTRATION RATE > 60.0 (>49); GLUCOSE, FASTING 100 MG/DL (70-100); POTASSIUM SERUM 4.3 MEQ/L (3.5-5.1); SODIUM LEVEL 142 MEQ/L (136-145)
[2020-10-23] MEDS ORDERED: MORPHINE 2 MG/ML 1ML VIAL (J2270) IV PRN (08:00)
[2020-10-23] MEDS: SENOKOT S TAB PO SCH ×2 (08:32→20:43)
[2020-10-23] MEDS: FOLIC ACID 1 MG TAB PO SCH (08:32)
[2020-10-23] MEDS: MULTIVITAMINS/MINERALS THERAP 1 TAB PO SCH (08:32)
[2020-10-23] MEDS: ENOXAPARIN 40MG/0.4ML SYRINGE (J1650 PER 10MG) SC SCH (08:32)
[2020-10-23] MEDS: NICOTINE 21MG/24HR 1 EA TRANSDERMAL TD SCH (08:32)
[2020-10-23] MEDS: THIAMINE 100 MG TAB PO SCH ×2 (08:32→20:43)
[2020-10-23] MEDS: PANTOPRAZOLE 40MG TAB (PROTONIX) PO SCH (08:32)
[2020-10-23] MEDS: lisinopriL 10 MG TAB PO SCH (08:34)
--- NOTE | 2020-10-23 10:04 | IPN ---
PROGRESS NOTE DATE: 10/23/2020 PRINCIPAL DIAGNOSIS: Incarcerated right inguinal hernia status post reduction in the emergency room with hemorrhagic small bowel. SUBJECTIVE: The patient states that he has been very distended overnight and having crampy abdominal pain. Essentially has developed an ileus associated with his inguinal hernia. He has not had any nausea. No vomiting. However, he has been burping a little bit. He states that he has had a little bit of flatus. No bowel movements. No further blood per rectum and he has intermittent crampy abdominal pain, but not persistent abdominal pain. PHYSICAL EXAMINATION: LUNGS: Clear anteriorly with a few crackles. HEART: Regular. ABDOMEN: Tensely distended, tympanitic, without guarding, without rebound. IMPRESSION/PLAN: Patient has ileus associated with his operative intervention. Mostly, I anticipate it is because of this damaged small bowel that was incarcerated in the inguinal hernia. At this point, we will keep him nothing by mouth (NPO). He was trying to drink last night and into the middle of the night and, unfortunately, that just exacerbated things overnight. He states since he has been up moving around this morning a little bit more, he actually feels a little bit better and, more importantly, they attempted to put a nasogastric (NG) tube in the emergency room and had difficulty. They were not able to pass this because of some previous trauma to his nose. Thus, given that he seems as though he states that he is feeling a little bit better this morning, but he is still incredibly distended, I do feel that we need to keep him nothing by mouth and continue with intravenous (IV) fluids and if he does not have improvement over the ensuing few hours, I have instructed that we may need to reattempt placing a NG tube again. He understands and will start getting up, moving around, seeing if that makes any difference at all with his overall status.
[2020-10-23] MEDS ORDERED: **hydrALAZINE** 10 MG TAB PO ONE (11:00)
--- NOTE | 2020-10-23 19:40 | IPNPDOC ---
Date Seen The patient was seen on 10/23/20. Progress Note SUBJECTIVE: POD 1 diagnostic laproscopy finding incarcerated right inguinal hernia with ischemic small bowel and ileus. BP uncontrolled, likely 2/2 to discomfort and fluids. He denies incr SOB, chest pain. OBJECTIVE: PHYSICAL EXAMINATION: VS: Please see below CONSTITUTIONAL: thin male, no acute distress, resting comfortably, AAO x 3 EYES: PERRLA, EOM intact HENT, MOUTH: Normocephalic, atraumatic, moist mucous membranes NECK: SUPPLE, no JVD, no lymphadenopathy, no carotid bruit CV: Regular rate and rhythm, S1S2 normal, no murmurs/rubs/gallops RESPIRATORY: Clear to auscultation bilaterally, no rales/rhonchi/wheezes GI: Abdominal incisions appear clean, nonsuppurative. BS positive in 4 quadrants, soft, nondistended, no rebound or guarding, no organomegaly : Right inguinalfullness MUSCULOSKELETAL: Normal ROM. No cyanosis, clubbing, swelling, joint deformity, extremity edema INTEGUMENTARY: Intact, no rashes, no lesions, no erythema NEUROLOGIC: Cranial Nerves II-XII are intact, no focal deficits PSYCHIATRIC: Mood and affect are normal LABORATORY DATA: Please see below IMAGING: CT abd/pelvis: 1. Moderate to large right inguinal hernia including mesenteric fat, fluid, and dilated small bowel suggesting incarcerated hernia causing associated bowel obstruction with dilated loops of small bowel identified in the lower pelvis. No associated free air or significant free fluid/abscess. 2. Moderately distended bladder with evidence for heterogeneous mildly enlarged prostate gland. ASSESSMENT: 65-year-old male with past medical history of tobacco use, alcohol use, inguinal hernia, BPH, COPD, hypertension admitted under surgical service for right incarcerated/strangulated inguinal hernia requiring repair. We are consulted for medical management. PLAN: Incarcerated right inguinal hernia with ischemic small bowel and ileus -POD 1 for diagnostic laproscopy. Plan was to not proceed with resection today but watch for several days and poss discharge to do resection surgery at later time next week per surgery -Discussed with Dr. Zuniga today, NPO due to increased distension and discomfort -Decreased IVFs -if does not improve, likely will need NG tube (last several attempts have failed in ER) -WBC 14.8K, empiric coverage with Zosyn -Pain control, diet per surgery -Surgery primary HTN, uncontrolled likely 2/2 to discomfort and IVFs -NPO so not going to diurese -Added hydralazine PRN, c/w lisinopril 10 mg PO daily Bloody BM, GI bleed? -Possibly 2/2 to problem above -H/H stable -No other bloody BM since last night -Monitoring closely, HD stable -Still on lovenox, stop if another bloody BM Tobacco use -Nicotine patch Alcohol use -No s/s of alcohol w/d -CIWA protocol, ativan, thiamine, folate, MV COPD -albuterol PRN BPH -No home meds DVT px -Lovenox , stop if another blood BM VS, I&O, 24H, Fishbone Vital Signs/I&O Vital Signs Date Time Temp Pulse Resp B/P (MAP) Pulse Ox O2 Delivery O2 Flow Rate FiO2 10/23/20 18:25 97.6 100 21 170/96 (120) 91 Room Air 10/23/20 06:00 2.0 I&O- Last 24 Hours up to 6 AM 10/23/20 06:00 Intake Total 3187 ml Output Total 1726 ml Balance 1461 ml Laboratory Data 24H LABS Laboratory Tests 2 10/23/20 05:43: Nucleated Red Blood Cells % (auto) 0.0, Anion Gap 9, Glomerular Filtration Rate > 60.0, Calcium Level 8.5L CBC/BMP Laboratory Tests 10/23/20 05:43 Current Medications Current Medications Medications (Trade) Dose Ordered Sig/Salvador Route PRN Reason Start Time Stop Time Status Last Admin Dose Admin Acetaminophen/ Hydrocodone Bitart ([place], Anexsia 5/325) 1 tab Q6H PRN PO MILD/MODERATE PAIN (PS 1-7) 10/21/20 14:30 Acetaminophen/ Hydrocodone Bitart ([place], Anexsia 5/325) 2 tab Q6H PRN PO SEVERE PAIN (PS 8-10) 10/21/20 14:30 10/23/20 15:47 Albuterol Sulfate (Proventil Neb) 2.5 mg Q2HP PRN NEB SOB/WHEEZING 10/21/20 14:15 Enoxaparin Sodium (Lovenox) 40 mg DAILY SC 10/22/20 09:00 10/23/20 08:32 Fentanyl Citrate (Sublimaze) 25 mcg Q5MP PRN IV PAIN LEVEL 5-10 10/22/20 11:30 10/22/20 14:03 DC Folic Acid (Folic Acid) 1 mg DAILY PO 10/22/20 09:00 10/23/20 08:32 Home Med (Med Rec Complete!) ASDIRECTED XX 10/21/20 12:30 10/21/20 12:31 DC Hydralazine HCl (Apresoline) 20 mg Q8H PO 10/23/20 20:00 Ketorolac Tromethamine (ToRADol) 30 mg Q6HP PRN IV MILD/MODERATE PAIN (PS 1-7) 10/21/20 14:30 10/26/20 14:29 Labetalol HCl (Normodyne, Trandate) 20 mg STAT STAT IV 10/21/20 11:19 10/21/20 11:20 DC 10/21/20 11:25 Lactated Ringer's 1,000 ml @ 100 mls/hr Q10H IV 10/22/20 11:30 10/22/20 12:30 DC Lisinopril (Prinivil) 10 mg DAILY PO 10/22/20 09:00 10/23/20 08:34 Lorazepam (Ativan) 1 mg STAT STAT IV 10/21/20 11:26 10/21/20 11:27 Cancel Lorazepam (Ativan) 2 mg ASDIRECTED PRN PO SEE PROTOCOL 10/21/20 15:00 Meperidine HCl (Demerol) 12.5 mg Q5MP PRN IV SHIVERING 10/22/20 11:30 10/22/20 12:30 DC Metoclopramide HCl (REGLAN INJection) 10 mg Q6HP PRN IV NAUSEA OR VOMITING 10/22/20 11:30 10/22/20 12:30 DC Morphine Sulfate (Morphine Sulfate Inj) 2 mg Q6H PRN IV SEVERE PAIN (PS 8-10) 10/23/20 08:00 Morphine Sulfate (Morphine Sulfate Inj) 4 mg Q30M PRN IV SEVERE PAIN (PS 8-10) 10/21/20 10:30 10/21/20 11:03 DC 10/21/20 11:03 Multivitamins (Theragram-M) 1 tab DAILY PO 10/22/20 09:00 10/23/20 08:32 Nicotine (Nicoderm Cq 21mg) 1 patch DAILY TD 10/22/20 09:00 10/23/20 08:32 Ondansetron HCl (ZOFRAN INJection) 4 mg Q4HP PRN IV NAUSEA OR VOMITING 10/22/20 11:30 10/22/20 12:30 DC Ondansetron HCl (ZOFRAN INJection) 4 mg Q6HP PRN IV NAUSEA OR VOMITING 10/21/20 14:30 Oxycodone HCl (Roxicodone, Oxyir) 5 mg ASDIRECTED PRN PO PAIN LEVEL 1-4 10/22/20 11:30 10/22/20 12:30 DC Pantoprazole Sodium (Protonix) 40 mg DAILY PO 10/21/20 09:00 10/23/20 08:32 Piperacillin Sod/ Tazobactam Sod 3.375 gm/Dextrose 50 ml @ 50 mls/hr Q6H IV 10/21/20 15:00 10/23/20 15:46 Senna/Docusate Sodium (Senokot S) 1 tab BID PO 10/21/20 21:00 10/23/20 08:32 Simethicone (Mylicon) 120 mg Q6H PO 10/23/20 00:00 10/23/20 18:51 Sodium Chloride 1,000 ml @ 75 mls/hr [id number] IV 10/21/20 14:25 10/23/20 06:41 Sodium Chloride 1,000 ml @ 100 mls/hr Q10H IV 10/21/20 10:30 10/21/20 14:31 DC 10/21/20 10:41 Thiamine HCl (Thiamine HCl) 100 mg BID PO 10/21/20 21:00 10/24/20 09:01 10/23/20 08:32 Allergies Coded Allergies: bupropion (Verified Adverse Reaction, Intermediate, HALLUCINATIONS, 10/21/20) Ruth Abel MD Oct 23, 2020 19:39
[2020-10-23] MEDS ORDERED: **hydrALAZINE** 10 MG TAB PO SCH (20:00)
[2020-10-23] MEDS: **hydrALAZINE** 10 MG TAB PO PRN (20:44)
[2020-10-24] VITALS: BP 154/86
[2020-10-24] MEDS: SIMETHICONE 80 MG CHEW TAB PO SCH ×5 (00:01→23:46)
[2020-10-24 02:00] VITALS: BP 156/84
[2020-10-24] MEDS: PIPERACILLIN/TAZOBACTAM SOD 3.375 GM in D5W MINI-BAG PLUS 50 ML IV SCH ×4 (03:22→21:11)
[2020-10-24] MEDS: **hydrALAZINE** 10 MG TAB PO PRN ×2 (05:42→15:39)
[2020-10-24 06:00] VITALS: BP 180/84
[2020-10-24 07:42] LABS: HEMATOCRIT 45.4 % (42.0-52.0); HEMOGLOBIN 14.7 g/dl (13.5-17.5); MEAN CORPUSCULAR HEMOGLOBIN 31.3 pg (27.0-33.0); MEAN CORPUSCULAR HGB CONC 32.4 g/dl (32.0-36.5); MEAN CORPUSCULAR VOLUME 96.6 fl (80.0-96.0); PLATELET COUNT, AUTOMATED 211 10^3/uL (150-450); WHITE BLOOD COUNT 9.9 10^3/uL (4.0-10.0)
[2020-10-24 08:03] LABS: BLOOD UREA NITROGEN 11 MG/DL (7-18); CALCIUM LEVEL 8.1 MG/DL (8.8-10.2); CARBON DIOXIDE LEVEL 28 MEQ/L (21-32); CHLORIDE LEVEL 103 MEQ/L (98-107); CREATININE FOR GFR 0.62 MG/DL (0.70-1.30); GLOMERULAR FILTRATION RATE > 60.0 (>49); GLUCOSE, FASTING 73 MG/DL (70-100); POTASSIUM SERUM 3.9 MEQ/L (3.5-5.1); SODIUM LEVEL 138 MEQ/L (136-145)
[2020-10-24 09:59] VITALS: BP 160/100
[2020-10-24] MEDS: MULTIVITAMINS/MINERALS THERAP 1 TAB PO SCH (09:59)
[2020-10-24] MEDS: SENOKOT S TAB PO SCH ×2 (09:59→21:10)
[2020-10-24] MEDS: ENOXAPARIN 40MG/0.4ML SYRINGE (J1650 PER 10MG) SC SCH (10:01)
[2020-10-24] MEDS: FOLIC ACID 1 MG TAB PO SCH (10:01)
[2020-10-24] MEDS: THIAMINE 100 MG TAB PO SCH (10:01)
[2020-10-24] MEDS: lisinopriL 10 MG TAB PO SCH (10:01)
[2020-10-24] MEDS: PANTOPRAZOLE 40MG TAB (PROTONIX) PO SCH (10:01)
[2020-10-24] MEDS: NICOTINE 21MG/24HR 1 EA TRANSDERMAL TD SCH (10:02)
[2020-10-24] MEDS: NS 1,000 ML IV SCH ×2 (12:53→23:21)
[2020-10-24 13:39] VITALS: BP 189/84
--- NOTE | 2020-10-24 16:38 | IPNPDOC ---
Date Seen The patient was seen on 10/24/20. Progress Note SUBJECTIVE: POD 2 diagnostic laproscopy finding incarcerated right inguinal hernia with ischemic small bowel and ileus. BP uncontrolled still but likely 2/2 to discomfort and fluids, hydralazine PRN. He feels slightly better today but is still distended. OBJECTIVE: PHYSICAL EXAMINATION: VS: Please see below CONSTITUTIONAL: thin male, no acute distress, resting in bedside chair, AAO x 3 EYES: PERRLA, EOM intact HENT, MOUTH: Normocephalic, atraumatic, moist mucous membranes NECK: SUPPLE, no JVD, no lymphadenopathy, no carotid bruit CV: Regular rate and rhythm, S1S2 normal, no murmurs/rubs/gallops RESPIRATORY: Clear to auscultation bilaterally, no rales/rhonchi/wheezes GI: Abdominal incisions appear clean, nonsuppurative. BS positive in 4 quadrants, soft, tense abd, mild tenderness diffusely, no organomegaly : Right inguinal fullness MUSCULOSKELETAL: Normal ROM. No cyanosis, clubbing, swelling, joint deformity, extremity edema INTEGUMENTARY: Intact, no rashes, no lesions, no erythema NEUROLOGIC: Cranial Nerves II-XII are intact, no focal deficits PSYCHIATRIC: Mood and affect are normal LABORATORY DATA: Please see below IMAGING: CT abd/pelvis: 1. Moderate to large right inguinal hernia including mesenteric fat, fluid, and dilated small bowel suggesting incarcerated hernia causing associated bowel obstruction with dilated loops of small bowel identified in the lower pelvis. No associated free air or significant free fluid/abscess. 2. Moderately distended bladder with evidence for heterogeneous mildly enlarged prostate gland. ASSESSMENT: 65-year-old male with past medical history of tobacco use, alcohol use, inguinal hernia, BPH, COPD, hypertension admitted under surgical service for right incarcerated/strangulated inguinal hernia requiring repair. We are consulted for medical management. PLAN: Incarcerated right inguinal hernia with ischemic small bowel and ileus -POD 2 for diagnostic laproscopy-Plan was to not proceed with resection but marie ch for several days and poss discharge to do resection surgery at later time this week per surgery -Discussed with Dr. Zuniga today, no NG tube to continue with conservative treatment for now -Decreased IVFs -WBC wnl, empiric coverage with Zosyn -Pain control, NPO -Surgery primary HTN, uncontrolled likely 2/2 to discomfort and IVFs -NPO so not going to diurese -Increasing ACEi to 20 mg PO daily, c/w hydralazine PRN -Watch Cr closely Bloody BM, GI bleed? -Possibly 2/2 to problem above -H/H stable -No other bloody BM since last night -Monitoring closely, HD stable -Still on lovenox, stop if another bloody BM Tobacco use -Nicotine patch Alcohol use -No s/s of alcohol w/d -CIWA protocol, ativan, thiamine, folate, MV COPD -albuterol PRN BPH -No home meds DVT px -Lovenox , stop if another blood BM VS, I&O, 24H, Fishbone Vital Signs/I&O Vital Signs Date Time Temp Pulse Resp B/P (MAP) Pulse Ox O2 Delivery O2 Flow Rate FiO2 10/24/20 15:39 189/84 10/24/20 13:39 98.4 94 18 98 Room Air 10/23/20 06:00 2.0 I&O- Last 24 Hours up to 6 AM 10/24/20 06:00 Intake Total 2410 ml Output Total 950 ml Balance 1460 ml Laboratory Data 24H LABS Laboratory Tests 2 10/24/20 06:34: Nucleated Red Blood Cells % (auto) 0.0, Anion Gap 7L, Glomerular Filtration Rate > 60.0, Calcium Level 8.1L 10/24/20 08:37: Lactic Acid Level 0.8 CBC/BMP Laboratory Tests 10/24/20 06:34 Current Medications Current Medications Medications (Trade) Dose Ordered Sig/Sav[place]ador Route PRN Reason Start Time Stop Time Status Last Admin Dose Admin Acetaminophen/ Hydrocodone Bitart ([place], Anexsia 5/325) 1 tab Q6H PRN PO MILD/MODERATE PAIN (PS 1-7) 10/21/20 14:30 Acetaminophen/ Hydrocodone Bitart ([place], Anexsia 5/325) 2 tab Q6H PRN PO SEVERE PAIN (PS 8-10) 10/21/20 14:30 10/23/20 15:47 Albuterol Sulfate (Proventil Neb) 2.5 mg Q2HP PRN NEB SOB/WHEEZING 10/21/20 14:15 Enoxaparin Sodium (Lovenox) 40 mg DAILY SC 10/22/20 09:00 10/24/20 10:01 Fentanyl Citrate (Sublimaze) 25 mcg Q5MP PRN IV PAIN LEVEL 5-10 10/22/20 11:30 10/22/20 14:03 DC Folic Acid (Folic Acid) 1 mg DAILY PO 10/22/20 09:00 10/24/20 10:01 Home Med (Med Rec Complete!) ASDIRECTED XX 10/21/20 12:30 10/21/20 12:31 DC Hydralazine HCl (Apresoline) 20 mg Q8H PO 10/23/20 20:00 10/23/20 19:35 DC Hydralazine HCl (Apresoline) 20 mg Q8HP PRN PO SEE PROTOCOL 10/23/20 20:00 10/24/20 15:39 Ketorolac Tromethamine (ToRADol) 30 mg Q6HP PRN IV MILD/MODERATE PAIN (PS 1-7) 10/21/20 14:30 10/26/20 14:29 Labetalol HCl (Normodyne, Trandate) 20 mg STAT STAT IV 10/21/20 11:19 10/21/20 11:20 DC 10/21/20 11:25 Lactated Ringer's 1,000 ml @ 100 mls/hr Q10H IV 10/22/20 11:30 10/22/20 12:30 DC Lisinopril (Prinivil) 10 mg DAILY PO 10/22/20 09:00 10/24/20 10:01 Lorazepam (Ativan) 1 mg STAT STAT IV 10/21/20 11:26 10/21/20 11:27 Cancel Lorazepam (Ativan) 2 mg ASDIRECTED PRN PO SEE PROTOCOL 10/21/20 15:00 10/23/20 23:15 DC Meperidine HCl (Demerol) 12.5 mg Q5MP PRN IV SHIVERING 10/22/20 11:30 10/22/20 12:30 DC Metoclopramide HCl (REGLAN INJection) 10 mg Q6HP PRN IV NAUSEA OR VOMITING 10/22/20 11:30 10/22/20 12:30 DC Morphine Sulfate (Morphine Sulfate Inj) 2 mg Q6H PRN IV SEVERE PAIN (PS 8-10) 10/23/20 08:00 Morphine Sulfate (Morphine Sulfate Inj) 4 mg Q30M PRN IV SEVERE PAIN (PS 8-10) 10/21/20 10:30 10/21/20 11:03 DC 10/21/20 11:03 Multivitamins (Theragram-M) 1 tab DAILY PO 10/22/20 09:00 10/24/20 09:59 Nicotine (Nicoderm Cq 21mg) 1 patch DAILY TD 10/22/20 09:00 10/24/20 10:02 Ondansetron HCl (ZOFRAN INJection) 4 mg Q4HP PRN IV NAUSEA OR VOMITING 10/22/20 11:30 10/22/20 12:30 DC Ondansetron HCl (ZOFRAN INJection) 4 mg Q6HP PRN IV NAUSEA OR VOMITING 10/21/20 14:30 Oxycodone HCl (Roxicodone, Oxyir) 5 mg ASDIRECTED PRN PO PAIN LEVEL 1-4 10/22/20 11:30 10/22/20 12:30 DC Pantoprazole Sodium (Protonix) 40 mg DAILY PO 10/21/20 09:00 10/24/20 10:01 Piperacillin Sod/ Tazobactam Sod 3.375 gm/Dextrose 50 ml @ 50 mls/hr Q6H IV 10/21/20 15:00 10/24/20 15:38 Senna/Docusate Sodium (Senokot S) 1 tab BID PO 10/21/20 21:00 10/24/20 09:59 Simethicone (Mylicon) 120 mg Q6H PO 10/23/20 00:00 10/24/20 12:52 Sodium Chloride 1,000 ml @ 75 mls/hr [id number] IV 10/21/20 14:25 10/24/20 12:53 Sodium Chloride 1,000 ml @ 100 mls/hr Q10H IV 10/21/20 10:30 10/21/20 14:31 DC 10/21/20 10:41 Thiamine HCl (Thiamine HCl) 100 mg BID PO 10/21/20 21:00 10/24/20 09:01 DC 10/24/20 10:01 Allergies Coded Allergies: bupropion (Verified Adverse Reaction, Intermediate, HALLUCINATIONS, 10/21/20) Ruth Abel MD Oct 24, 2020 16:38
[2020-10-24] MEDS ORDERED: lisinopriL 10 MG TAB PO ONE (17:00)
--- NOTE | 2020-10-24 18:30 | IPN ---
PROGRESS NOTE DATE: 10/24/2020 Patient seems to be stable this morning. His white count is coming down nicely, however he is still quite distended. He does have an inguinal hernia on the right hand side that is easily reducible, otherwise he is still tympanitic. He states that he has been having a great deal of flatus today, no bowel movements as of yet, no diarrhea, no nausea, no vomiting. IMPRESSION/ PLAN: Patient has a resolving ileus/partial obstruction secondary to inflamed small bowel that was incarcerated in his right inguinal hernia area. Once his abdominal distention seems to resolve/improve then I would recommend operative intervention with repair of his right inguinal hernia prior to his discharge. We have discussed starting him on some clear liquids but he is distended enough that I do feel that another day of just IV fluids and nothing by mouth will probably make a significant difference and may help us get to our goal of decreased distention. The patient understands our current plan and agrees with the above.
[2020-10-24 21:15] VITALS: BP 171/98
[2020-10-25] MEDS: **hydrALAZINE** 10 MG TAB PO PRN (00:54)
[2020-10-25] MEDS: PIPERACILLIN/TAZOBACTAM SOD 3.375 GM in D5W MINI-BAG PLUS 50 ML IV SCH ×4 (04:04→21:15)
[2020-10-25] MEDS: SIMETHICONE 80 MG CHEW TAB PO SCH ×4 (05:00→23:07)
[2020-10-25] MEDS: NS 1,000 ML IV SCH ×2 (05:01→21:16)
[2020-10-25 06:00] VITALS: BP 154/91
[2020-10-25 06:25] LABS: HEMATOCRIT 41.3 % (42.0-52.0); HEMOGLOBIN 14.1 g/dl (13.5-17.5); MEAN CORPUSCULAR HEMOGLOBIN 32.2 pg (27.0-33.0); MEAN CORPUSCULAR HGB CONC 34.1 g/dl (32.0-36.5); MEAN CORPUSCULAR VOLUME 94.3 fl (80.0-96.0); PLATELET COUNT, AUTOMATED 217 10^3/uL (150-450); RED BLOOD COUNT 4.38 10^6/uL (4.30-6.10); WHITE BLOOD COUNT 9.3 10^3/uL (4.0-10.0)
[2020-10-25 06:57] LABS: ALBUMIN 2.5 GM/DL (3.2-5.2); ALT/SGPT 14 U/L (12-78); BILIRUBIN,TOTAL 1.1 MG/DL (0.2-1.0); BLOOD UREA NITROGEN 13 MG/DL (7-18); CALCIUM LEVEL 7.6 MG/DL (8.8-10.2); CARBON DIOXIDE LEVEL 23 MEQ/L (21-32); CHLORIDE LEVEL 104 MEQ/L (98-107); GLOMERULAR FILTRATION RATE > 60.0 (>49); GLUCOSE, FASTING 73 MG/DL (70-100); POTASSIUM SERUM 3.2 MEQ/L (3.5-5.1); SODIUM LEVEL 138 MEQ/L (136-145); TOTAL PROTEIN 5.3 GM/DL (6.4-8.2)
--- OUTSIDE RECORDS SUMMARY | 2020-10-25 07:24 | CCD ---
Author Author [facility] Organization [facility] Address Unknown Phone Unavailable Support Name Relationship Address Phone [facility] [place] [address] [facility] Next Of Kin [address] [place] [address] MEHNAZ HODGES Next Of Kin [address] [place] [address] [facility] Next Of Kin Unknown Unavailable Re-disclosure [...] is protected by Article 27-F of the [facility] Public Health law. If you continue you may have access to information: Regarding HIV / AIDS; Provided by facilities licensed or operated by the [facility] Office of Mental Health; or Provided by the [facility] Office for People With Developmental Disabilities. If such information is present, then the following [facility] mandated warning applies: This information has [...] relationship to chaney Policy Chaney Plan Information SELF PAY ONLY [id number] SP [id number] [employer] [place] [id number] SP [id number] MEDICARE [id number] SP [id number] MEDICARE [id number] SP [id number] A [facility] [place] [id number] MEDICAID M [id number] S [id number] MEDICARE C [id number] S [id number] A [place] Primary Self SELF PAY ONLY UNAVAILABLE UNAV AILABLE SELF PAY UNAVAILABLE SP UNAVAILA BLE MEDICAID [id number] SP [id number] Results ID Date Data Source [id number] 10/21/2020 11:24:00 AM EST [facility] Name Value Range Interpretation Code Description Data Molly rce(s) Supporting Document(s) SARS coronavirus 2 RNA [Presence] in Res piratory specimen by ELIU with probe detection NEGATIVE [facility] This lab was ordered by [facility] a nd reported by [facility]. Procedure
[2020-10-25] MEDS ORDERED: POTASSIUM CHLORIDE 10 MEQ SR TABLET PO ONE (08:15)
[2020-10-25] MEDS: ENOXAPARIN 40MG/0.4ML SYRINGE (J1650 PER 10MG) SC SCH (09:36)
[2020-10-25] MEDS: NICOTINE 21MG/24HR 1 EA TRANSDERMAL TD SCH (09:37)
[2020-10-25] MEDS: PANTOPRAZOLE 40MG TAB (PROTONIX) PO SCH (09:37)
[2020-10-25] MEDS: SENOKOT S TAB PO SCH ×2 (09:37→21:00)
[2020-10-25] MEDS: MULTIVITAMINS/MINERALS THERAP 1 TAB PO SCH (09:37)
[2020-10-25] MEDS: FOLIC ACID 1 MG TAB PO SCH (09:37)
[2020-10-25] MEDS: lisinopriL 20 MG TAB PO SCH (09:39)
[2020-10-25 14:00] VITALS: BP 160/72
[2020-10-25 16:22] LABS: HEMATOCRIT 41.7 % (42.0-52.0); HEMOGLOBIN 13.8 g/dl (13.5-17.5)
--- NOTE | 2020-10-25 18:42 | IPNPDOC ---
Date Seen The patient was seen on 10/25/20. Progress Note SUBJECTIVE: POD 3 diagnostic laproscopy finding incarcerated right inguinal hernia with ischemic small bowel and ileus. Passing flatus, bloody bowel movement today. Discussed with surgery. BP uncontrolled still but likely 2/2 to discomfort and fluids, hydralazine PRN. He feels slightly better today but is still distended. OBJECTIVE: PHYSICAL EXAMINATION: VS: Please see below CONSTITUTIONAL: thin male, no acute distress, resting in bedside chair, AAO x 3 EYES: PERRLA, EOM intact HENT, MOUTH: Normocephalic, atraumatic, moist mucous membranes NECK: SUPPLE, no JVD, no lymphadenopathy, no carotid bruit CV: Regular rate and rhythm, S1S2 normal, no murmurs/rubs/gallops RESPIRATORY: Clear to auscultation bilaterally, no rales/rhonchi/wheezes GI: Abdominal incisions appear clean, nonsuppurative. BS positive in 4 quadrants, soft, tense abd, typanic, mild tenderness diffusely, no organomegaly : Right inguinal fullness MUSCULOSKELETAL: Normal ROM. No cyanosis, clubbing, swelling, joint deformity, extremity edema INTEGUMENTARY: Intact, no rashes, no lesions, no erythema NEUROLOGIC: Cranial Nerves II-XII are intact, no focal deficits PSYCHIATRIC: Mood and affect are normal LABORATORY DATA: Please see below IMAGING: CT abd/pelvis: 1. Moderate to large right inguinal hernia including mesenteric fat, fluid, and dilated small bowel suggesting incarcerated hernia causing associated bowel obstruction with dilated loops of small bowel identified in the lower pelvis. No associated free air or significant free fluid/abscess. 2. Moderately distended bladder with evidence for heterogeneous mildly enlarged prostate gland. ASSESSMENT: 65-year-old male with past medical history of tobacco use, alcohol use, inguinal hernia, BPH, COPD, hypertension admitted under surgical service for right incarcerated/strangulated inguinal hernia requiring repair. We are consulted for medical management. PLAN: Incarcerated right inguinal hernia with ischemic small bowel and ileus which is improving slowly -POD 3 for diagnostic laproscopy -Bowel movement today was very dark, no red blood or clots, passing flatus -C/w conservative treatment for now -Decreased IVFs -WBC wnl, empiric coverage with Zosyn -Pain control, NPO -Surgery primary and decision as to operate or not has not been decided yet. Plan was to not proceed with resection but watch for several days and poss disc harge vs. do resection here at later time this week per surgery HTN, uncontrolled likely 2/2 to discomfort and IVFs -NPO so not going to diurese -C/w ACEi to 20 mg PO daily, c/w hydralazine PRN -Watch Cr closely Bloody BM likely 2/2 to GI bleed from ischemic small bowel -H/H stable -Dark black BM today, no other s/s of bleeding -Monitoring closely, HD stable -Still on lovenox, stop if bloody BM increase Tobacco use -Nicotine patch Alcohol use -No s/s of alcohol w/d -CIWA protocol, ativan, thiamine, folate, MV COPD -albuterol PRN BPH -No home meds DVT px -Lovenox , stop if another blood BM VS, I&O, 24H, Fishbone Vital Signs/I&O Vital Signs Date Time Temp Pulse Resp B/P (MAP) Pulse Ox O2 Delivery O2 Flow Rate FiO2 10/25/20 14:00 97.9 93 22 160/72 (101) 93 Room Air 10/23/20 06:00 2.0 I&O- Last 24 Hours up to 6 AM 10/25/20 06:00 Intake Total 1300 ml Output Total 1475 ml Balance -175 ml Laboratory Data 24H LABS Laboratory Tests 2 10/25/20 05:38: Nucleated Red Blood Cells % (auto) 0.0, Anion Gap 11, Glomerular Filtration Rate > 60.0, Calcium Level 7.6L, Total Bilirubin 1.1H, Aspartate Amino Transf (AST/SG OT) 13, Alanine Aminotransferase (ALT/SGPT) 14, Alkaline Phosphatase 50, Total Protein 5.3L, Albumin 2.5L, Albumin/Globulin Ratio 0.9 CBC/BMP Laboratory Tests 10/25/20 05:38 10/25/20 15:34 Current Medications Current Medications Medications (Trade) Dose Ordered Sig/Salvador Route PRN Reason Start Time Stop Time Status Last Admin Dose Admin Acetaminophen/ Hydrocodone Bitart ([place], Anexsia 5/325) 1 tab Q6H PRN PO MILD/MODERATE PAIN (PS 1-7) 10/21/20 14:30 Acetaminophen/ Hydrocodone Bitart ([place], Anexsia 5/325) 2 tab Q6H PRN PO SEVERE PAIN (PS 8-10) 10/21/20 14:30 10/23/20 15:47 Albuterol Sulfate (Proventil Neb) 2.5 mg Q2HP PRN NEB SOB/WHEEZING 10/21/20 14:15 Enoxaparin Sodium (Lovenox) 40 mg DAILY SC 10/22/20 09:00 10/25/20 09:36 Fentanyl Citrate (Sublimaze) 25 mcg Q5MP PRN IV PAIN LEVEL 5-10 10/22/20 11:30 10/22/20 14:03 DC Folic Acid (Folic Acid) 1 mg DAILY PO 10/22/20 09:00 10/25/20 09:37 Home Med (Med Rec Complete!) ASDIRECTED XX 10/21/20 12:30 10/21/20 12:31 DC Hydralazine HCl (Apresoline) 20 mg Q8H PO 10/23/20 20:00 10/23/20 19:35 DC Hydralazine HCl (Apresoline) 20 mg Q8HP PRN PO SEE PROTOCOL 10/23/20 20:00 10/25/20 00:54 Ketorolac Tromethamine (ToRADol) 30 mg Q6HP PRN IV MILD/MODERATE PAIN (PS 1-7) 10/21/20 14:30 10/26/20 14:29 Labetalol HCl (Normodyne, Trandate) 20 mg STAT STAT IV 10/21/20 11:19 10/21/20 11:20 DC 10/21/20 11:25 Lactated Ringer's 1,000 ml @ 100 mls/hr Q10H IV 10/22/20 11:30 10/22/20 12:30 DC Lisinopril (Prinivil) 10 mg DAILY PO 10/22/20 09:00 10/24/20 16:37 DC 10/24/20 10:01 Lisinopril (Prinivil) 20 mg DAILY PO 10/25/20 09:00 10/25/20 09:39 Lorazepam (Ativan) 1 mg STAT STAT IV 10/21/20 11:26 10/21/20 11:27 Cancel Lorazepam (Ativan) 2 mg ASDIRECTED PRN PO SEE PROTOCOL 10/21/20 15:00 10/23/20 23:15 DC Meperidine HCl (Demerol) 12.5 mg Q5MP PRN IV SHIVERING 10/22/20 11:30 10/22/20 12:30 DC Metoclopramide HCl (REGLAN INJection) 10 mg Q6HP PRN IV NAUSEA OR VOMITING 10/22/20 11:30 10/22/20 12:30 DC Morphine Sulfate (Morphine Sulfate Inj) 2 mg Q6H PRN IV SEVERE PAIN (PS 8-10) 10/23/20 08:00 Morphine Sulfate (Morphine Sulfate Inj) 4 mg Q30M PRN IV SEVERE PAIN (PS 8-10) 10/21/20 10:30 10/21/20 11:03 DC 10/21/20 11:03 Multivitamins (Theragram-M) 1 tab DAILY PO 10/22/20 09:00 10/25/20 09:37 Nicotine (Nicoderm Cq 21mg) 1 patch DAILY TD 10/22/20 09:00 10/25/20 09:37 Ondansetron HCl (ZOFRAN INJection) 4 mg Q4HP PRN IV NAUSEA OR VOMITING 10/22/20 11:30 10/22/20 12:30 DC Ondansetron HCl (ZOFRAN INJection) 4 mg Q6HP PRN IV NAUSEA OR VOMITING 10/21/20 14:30 Oxycodone HCl (Roxicodone, Oxyir) 5 mg ASDIRECTED PRN PO PAIN LEVEL 1-4 10/22/20 11:30 10/22/20 12:30 DC Pantoprazole Sodium (Protonix) 40 mg DAILY PO 10/21/20 09:00 10/25/20 09:37 Piperacillin Sod/ Tazobactam Sod 3.375 gm/Dextrose 50 ml @ 50 mls/hr Q6H IV 10/21/20 15:00 10/25/20 16:02 Senna/Docusate Sodium (Senokot S) 1 tab BID PO 10/21/20 21:00 10/25/20 09:37 Simethicone (Mylicon) 120 mg Q6H PO 10/23/20 00:00 10/25/20 13:32 Sodium Chloride 1,000 ml @ 75 mls/hr [id number] IV 10/21/20 14:25 10/25/20 05:01 Sodium Chloride 1,000 ml @ 100 mls/hr Q10H IV 10/21/20 10:30 10/21/20 14:31 DC 10/21/20 10:41 Thiamine HCl (Thiamine HCl) 100 mg BID PO 10/21/20 21:00 10/24/20 09:01 DC 10/24/20 10:01 Allergies Coded Allergies: bupropion (Verified Adverse Reaction, Intermediate, HALLUCINATIONS, 10/21/20) Ruth Abel MD Oct 25, 2020 18:42
[2020-10-25 22:00] VITALS: BP 154/88
[2020-10-26] MEDS: PIPERACILLIN/TAZOBACTAM SOD 3.375 GM in D5W MINI-BAG PLUS 50 ML IV SCH ×2 (02:02→08:08)
[2020-10-26] MEDS: SIMETHICONE 80 MG CHEW TAB PO SCH (05:16)
[2020-10-26 06:00] VITALS: BP 116/73
[2020-10-26 06:43] LABS: HEMATOCRIT 39.7 % (42.0-52.0); HEMOGLOBIN 13.3 g/dl (13.5-17.5); MEAN CORPUSCULAR HEMOGLOBIN 32.1 pg (27.0-33.0); MEAN CORPUSCULAR HGB CONC 33.5 g/dl (32.0-36.5); MEAN CORPUSCULAR VOLUME 95.9 fl (80.0-96.0); PLATELET COUNT, AUTOMATED 200 10^3/uL (150-450); RED BLOOD COUNT 4.14 10^6/uL (4.30-6.10); WHITE BLOOD COUNT 7.8 10^3/uL (4.0-10.0)
[2020-10-26 07:36] LABS: ALBUMIN 2.4 GM/DL (3.2-5.2); ALT/SGPT 14 U/L (12-78); BILIRUBIN,TOTAL 1.2 MG/DL (0.2-1.0); BLOOD UREA NITROGEN 19 MG/DL (7-18); CALCIUM LEVEL 8.1 MG/DL (8.8-10.2); CARBON DIOXIDE LEVEL 24 MEQ/L (21-32); CHLORIDE LEVEL 106 MEQ/L (98-107); CREATININE FOR GFR 0.55 MG/DL (0.70-1.30); GLOMERULAR FILTRATION RATE > 60.0 (>49); GLUCOSE, FASTING 61 MG/DL (70-100); SODIUM LEVEL 139 MEQ/L (136-145); TOTAL PROTEIN 4.6 GM/DL (6.4-8.2)
[2020-10-26] MEDS: FOLIC ACID 1 MG TAB PO SCH (08:08)
[2020-10-26] MEDS: MULTIVITAMINS/MINERALS THERAP 1 TAB PO SCH (08:08)
[2020-10-26 08:09] VITALS: BP 139/71
[2020-10-26] MEDS: SENOKOT S TAB PO SCH (08:09)
[2020-10-26] MEDS: lisinopriL 20 MG TAB PO SCH (08:09)
[2020-10-26] MEDS: PANTOPRAZOLE 40MG TAB (PROTONIX) PO SCH (08:09)
[2020-10-26] MEDS: ENOXAPARIN 40MG/0.4ML SYRINGE (J1650 PER 10MG) SC SCH (08:10)
[2020-10-26] MEDS: NICOTINE 21MG/24HR 1 EA TRANSDERMAL TD SCH (08:10)
[2020-10-26] MEDS ORDERED: AUGM875T28 PO (09:03)
[2020-10-26] MEDS ORDERED: HYDR-3715 PO (09:03)
--- NOTE | 2020-10-26 09:54 | DSES ---
DISCHARGE SUMMARY DATE OF ADMISSION: 10/21/2020 DATE OF DISCHARGE: 10/26/2020 ADMISSION DIAGNOSIS: Incarcerated right inguinal hernia repair. DISCHARGE DIAGNOSES: Strangulated right inguinal hernia. HOSPITAL COURSE: The patient is a 65-year-old male who presents with a right inguinal bulge and pain. He has had the bulge for over a year with a known reducible hernia. However, he was unable to reduce it and the pain was severe last . I met him in the Emergency Room and I was able to reduce it with some steady pressure. He had immediate relief and he was brought to the operating room the next morning for surgery. During the surgery he was found to have an ileus as well as some ischemia of a loop of small bowel. It was not all the way through the wall but it was definitely inflamed and edematous enough to be causing some edema and an ileus. Because of that the plan was to avoid fixing the hernia due to risk of bacterial translocation from the affected limb of small bowel, also due to poor visualization due to the ileus. I completed the surgery just as a diagnostic laparoscopy. Postoperatively he did have a significant ileus over the weekend. No nausea or vomiting but he did have significant abdominal distention. On the morning of the he started to have some bowel movements and passed a lot of gas but it was mostly maroon-colored stools. Vitals and labs remained stable. This morning on the , his belly is soft, much less distended. He is still passing a lot of gas and he had some brown stools this morning. Labs are all stable. The plan is to discharge him home today. I have him set on the OR schedule for the of this month. That will give us sufficient time for him to be seen by his primary doctor to get some medical clearance. It will also give us enough time for him to get a COVID test to be able to come in for an elective surgery. I will discharge him home today, send him home with a week's worth of antibiotics, also send him home with a couple days of pain pills. He will follow up with me in the office on to sign paperwork for surgery and also to double check and make sure that he is still progressing appropriately. All of his questions are answered. He understands the plan and I will see him this .
[2020-10-26] MEDS ORDERED: FLUBLOK(EGG FREE)(QUAD)INFLUENZA VACC 0.5ML SYRINGE 18YRS & OLDER IM ONE (10:45)
== END 2020-10-26 11:28 | disposition home or self-care (01) | DRG 229 ==
LOC: M ED 10:03 → EDBD 10:03 → M SDC 14:47 → M MSPAV 15:58 → M SDC 10-22 15:53 → M MSPAV 10-22 15:54
PROVIDERS: ADMIT Surgery; ATTEND Surgery
PROC: 0WJF4ZZ Inspection of Abdominal Wall, Percutaneous Endoscopic Approach (ICD-10-PCS; principal; 2020-10-21)
DX: K40.30 Unilateral inguinal hernia, with obstruction, without gangrene, not specified as recurrent (principal); J44.9 Chronic obstructive pulmonary disease, unspecified; I10 Essential (primary) hypertension; N40.0 Benign prostatic hyperplasia without lower urinary tract symptoms; F17.200 Nicotine dependence, unspecified, uncomplicated; F10.10 Alcohol abuse, uncomplicated

== ENCOUNTER → 2020-11-07 | Outpatient (CLI) | payer SELFPAY ==
[~2020-11-07] MED LIST changes: +AUGM875T28 PO; +HYDR-3715 PO
== END ==
LOC: M LABSMTC 09:49
PROVIDERS: ATTEND Anesthesiology
DX: Z01.812 Encounter for preprocedural laboratory examination (principal); Z20.822 Contact with and (suspected) exposure to COVID-19

== ENCOUNTER → 2020-11-08 | Outpatient (REF) | payer SELFPAY ==
[2020-11-08 11:06] LABS: CHOLESTEROL RISK RATIO 2.956 (<5)
== END ==
LOC: M SFHCPLAZ 09:00
PROVIDERS: ATTEND Family Medicine
DX: Z13.1 Encounter for screening for diabetes mellitus (principal); Z13.220 Encounter for screening for lipoid disorders

== ENCOUNTER → 2020-11-09 | Outpatient (CLI) | payer SELFPAY ==
--- NOTE | 2020-11-09 09:22 | REPPI ---
INDICATION: HX PNEUMOTHORAX COMPARISON: 08/29/2018 TECHNIQUE: PA and lateral. FINDINGS: Mediastinum and cardiac silhouette are within normal limits and stable. Lung paniagua demonstrate chronic changes primarily involving the right lung base as well as old healed right rib fractures. No acute consolidation, obvious acute effusion, or pneumothorax. IMPRESSION: Chronic stable changes. <Electronically signed by Remi Garrett > 11/09/20 0918
== END ==
LOC: M PLAIMG 08:25
PROVIDERS: ATTEND Family Medicine
DX: Z87.09 Personal history of other diseases of the respiratory system (principal)

== ENCOUNTER 2020-11-12 06:14 | Day surgery (SDC) | payer SELFPAY ==
[~2020-11-12] VITALS: Ht 167.6 cm; Wt 50.8 kg
--- OUTSIDE RECORDS SUMMARY | 2020-11-12 06:21 | CCD | Continuity of Care Document ---
Author Author Forrest DELGADILLO DO Organization Unknown Address [address], [address] [place] [address] Phone [phone] Care Team Providers Care Public Health Nurse Name Role Phone Mauricio Bernardo M.D. AUTM [phone] Pao Dunbar M.D. AUTM [phone] Problems Description No Information Available Social History Type Date Description Comments Sex Unknown ETOH Use Currently consumes alcohol DAILY ALCOHOL ABUSE Tobacco Use Start: 09/24/77 End: 09/24/17 Patient is a current smoker, smokes every day smokes 1 pack of cigars a day Recreational Drug Use Denies Drug Use Smoking Status Reviewed: 08/28/18 Patient is a current smoker, smokes every day smokes 1 pack of cigars a day Allergies, Adverse Reactions, Alerts Active Allergies Reaction Severity Comments Date Bupropion 08/29/2018 Medications Active Medications SIG Qnty Indications Ordering Provide r Date Amoxicillin/Clavulanate Potassium 875-125mg Tablets 1 by mouth twice a day Unknown Hydrocodone-Acetaminophen 5-325mg Tablets 1 Q6H prn Unknown Immunizations Description No Information Available Vital Signs Date Vital Result Comment 10/28/2020 1:08pm BP Systolic 172 mmHg BP Diastolic 88 mmHg Height 64 inches 5'4" Weight 120.12 lb BMI (Body Mass Index) 20.6 kg/m2 [place] Body Weight 130 lb Weight 54.489 kg BSA (Body Surface Area) 1.58 m2 08/29/2018 9:53am BP Systolic 120 mmHg BP Diastolic 80 mmHg Heart Rate 86 /min O2 % BldC Oximetry 98 % Room Air Body Temperature 97.4 F Height 64 inches 5'4" Weight 113.00 lb BMI (Body Mass Index) 19.4 kg/m2 [place] Body Weight 130 lb Weight 51.257 kg BSA (Body Surface Area) 1.53 m2 Results Test Acquired Date Facility Test Result H/L Range Note Complete Blood Count 10/25/2020 [facility] Main Lab [address] [place] [address] [phone] White Blood Count 9.3 10 Normal 4.0-10.0 Red Blood Count 4.38 10 Normal 4.30-6.10 Hemoglobin 14.1 g/dL Normal 13.5-17.5 Hematocrit 41.3 % Low 42.0-52.0 Mean Corpuscular Volume 94.3 fl Normal 80.0-96.0 Mean Corpuscular Hemoglobin 32.2 pg Normal 27.0-33.0 Mean Corpuscular HGB Conc 34.1 g/dL Normal 32.0-36.5 Red Cell Distribution Width 11.9 % Normal 11.5-14.5 Platelet Count, Automated 217 10 Normal 150-450 Nucleated Red Blood Cell % 0.0 % Normal 0-0 Comprehensive Metabolic Profil 10/25/2020 [facility] Main Lab [address] [place] [address] [phone] Glucose, Fasting 73 mg/dL Normal 70-100 Blood Urea Nitrogen 13 mg/dL Normal 7-18 Creatinine For GFR 0.50 mg/dL Low 0.70-1.30 Glomerular Filtration Rate > 60.0 Normal >49 1 Sodium Level 138 mEq/L Normal 136-145 Potassium Serum 3.2 mEq/L Low 3.5-5.1 Chloride Level 104 mEq/L Normal 98-107 Carbon Dioxide Level 23 mEq/L Normal 21-32 Anion Gap 11 mEq/L Normal 8-16 Calcium Level 7.6 mg/dL Low 8.8-10.2 Ast/Sgot 13 U/L Normal 7-37 Alt/SGPT 14 U/L Normal 12-78 Alkaline Phosphatase 50 U/L Normal 45-117 Bilirubin,Total 1.1 mg/dL High 0.2-1.0 Total Protein 5.3 GM/DL Low 6.4-8.2 Albumin 2.5 GM/DL Low 3.2-5.2 Albumin/Globulin Ratio 0.9 Normal Laboratory test finding 10/24/2020 [facility] Main Lab [address] [place] [address] [phone] Lactic Acid Sepsis Protocol 0.8 mmol/L Normal 0.4- 2.0 2 Complete Blood Count 10/24/2020 [facility] Main Lab [address] [place] [address] [phone] White Blood Count 9.9 10 Normal 4.0-10.0 Red Blood Count 4.70 10 Normal 4.30-6.10 Hemoglobin 14.7 g/dL Normal 13.5-17.5 Hematocrit 45.4 % Normal 42.0-52.0 Mean Corpuscular Volume 96.6 fl High 80.0-96.0 Mean Corpuscular Hemoglobin 31.3 pg Normal 27.0-33.0 Mean Corpuscular HGB Conc 32.4 g/dL Normal 32.0-36.5 Red Cell Distribution Width 12.3 % Normal 11.5-14.5 Platelet Count, Automated 211 10 Normal 150-450 Nucleated Red Blood Cell % 0.0 % Normal 0-0 Basic Metabolic Profile 10/24/2020 [facility] Lab [address] [place] [address] [phone] Glucose, Fasting 73 mg/dL Normal 70-100 Blood Urea Nitrogen 11 mg/dL Normal 7-18 Creatinine For GFR 0.62 mg/dL Low 0.70-1.30 Glomerular Filtration Rate > 60.0 Normal >49 3 Sodium Level 138 mEq/L Normal 136-145 Potassium Serum 3.9 mEq/L Normal 3.5-5.1 Chloride Level 103 mEq/L Normal 98-107 Carbon Dioxide Level 28 mEq/L Normal 21-32 Anion Gap 7 mEq/L Low 8-16 Calcium Level 8.1 mg/dL Low 8.8-10.2 Complete Blood Count 10/23/2020 [facility] Lab [address] [place] [address] [phone] White Blood Count 14.8 10 High 4.0-10.0 Red Blood Count 4.76 10 Normal 4.30-6.10 Hemoglobin 15.3 g/dL Normal 13.5-17.5 Hematocrit 45.6 % Normal 42.0-52.0 Mean Corpuscular Volume 95.8 fl Normal 80.0-96.0 Mean Corpuscular Hemoglobin 32.1 pg Normal 27.0-33.0 Mean Corpuscular HGB Conc 33.6 g/dL Normal 32.0-36.5 Red Cell Distribution Width 12.4 % Normal 11.5-14.5 Platelet Count, Automated 212 10 Normal 150-450 Nucleated Red Blood Cell % 0.0 % Normal 0-0 Basic Metabolic Profile 10/23/2020 [facility] Lab [address] [place], [place] [id number] [phone] Glucose, Fasting 100 mg/dL Normal 70-100 Blood Urea Nitrogen 9 mg/dL Normal 7-18 Creatinine For GFR 0.73 mg/dL Normal 0.70-1.30 Glomerular Filtration Rate > 60.0 Normal >49 4 Sodium Level 142 mEq/L Normal 136-145 Potassium Serum 4.3 mEq/L Normal 3.5-5.1 Chloride Level 105 mEq/L Normal 98-107 Carbon Dioxide Level 28 mEq/L Normal 21-32 Anion Gap 9 mEq/L Normal 8-16 Calcium Level 8.5 mg/dL Low 8.8-10.2 Complete Blood Count 10/22/2020 [facility] Main Lab [address] [place], [place] [id number] [phone] White Blood Count 14.1 10 High 4.0-10.0 Red Blood Count 4.75 10 Normal 4.30-6.10 Hemoglobin 15.0 g/dL Significant change down 13.5-17.5 Hematocrit 45.0 % Normal 42.0-52.0 Mean Corpuscular Volume 94.7 fl Normal 80.0-96.0 Mean Corpuscular Hemoglobin 31.6 pg Normal 27.0-33.0 Mean Corpuscular HGB Conc 33.3 g/dL Normal 32.0-36.5 Red Cell Distribution Width 12.5 % Normal 11.5-14.5 Platelet Count, Automated 214 10 Normal 150-450 Nucleated Red Blood Cell % 0.0 % Normal 0-0 Basic Metabolic Profile 10/22/2020 [facility] Main Lab [address] [place], [place] [id number] [phone] Glucose, Fasting 113 mg/dL High 70-100 Blood Urea Nitrogen 15 mg/dL Normal 7-18 Creatinine For GFR 0.62 mg/dL Low 0.70-1.30 Glomerular Filtration Rate > 60.0 Normal >49 5 Sodium Level 136 mEq/L Normal 136-145 Potassium Serum 3.9 mEq/L Significant change down 3.5-5.1 Chloride Level 103 mEq/L Normal 98-107 Carbon Dioxide Level 25 mEq/L Normal 21-32 Anion Gap 8 mEq/L Normal 8-16 Calcium Level 7.7 mg/dL Low 8.8-10.2 PT & Aptt 10/21/2020 [facility] Main Lab [address] [place], [place] [id number] [phone] Prothrombin Time 13.9 seconds Normal 12.5-14.3 Inr 1.05 Normal 6 Partial Thromboplastin Time 28.1 seconds Normal 24.2-38.5 Comprehensive Metabolic Profil 10/21/2020 [facility] Main Lab [address] [place] [address] [phone] Glucose, Fasting 124 mg/dL High 70-100 Blood Urea Nitrogen 18 mg/dL Normal 7-18 Creatinine For GFR 0.80 mg/dL Normal 0.70-1.30 Glomerular Filtration Rate > 60.0 Normal >49 7 Sodium Level 138 mEq/L Normal 136-145 Potassium Serum 5.1 mEq/L Normal 3.5-5.1 Chloride Level 104 mEq/L Normal 98-107 Carbon Dioxide Level 27 mEq/L Normal 21-32 Anion Gap 7 mEq/L Low 8-16 Calcium Level 8.4 mg/dL Low 8.8-10.2 Ast/Sgot 18 U/L Normal 7-37 Alt/SGPT 26 U/L Normal 12-78 Alkaline Phosphatase 82 U/L Normal 45-117 Bilirubin,Total 0.8 mg/dL Normal 0.2-1.0 Total Protein 6.1 GM/DL Low 6.4-8.2 Albumin 3.5 GM/DL Normal 3.2-5.2 Albumin/Globulin Ratio 1.3 Normal 1 Units are mL/min/1.73 m2 Chronic Kidney Disease Staging per NKF: Stage I & II GFR >=60 Normal to Mildly Decreased Stage III GFR 30-59 Moderately Decreased Stage IV GFR 15-29 Severely Decreased Stage V GFR <15 Very Little GFR Left ESRD GFR <15 on [employer] 2 Comments: lab draw Comments: lab draw Y/N query for Sepsis Lactate Rule: Y 3 Units are mL/min/1.73 m2 Chronic Kidney Disease Staging per NKF: Stage I & II GFR >=60 Normal to Mildly Decreased Stage III GFR 30-59 Moderately Decreased Stage IV GFR 15-29 Severely Decreased Stage V GFR <15 Very Little GFR Left ESRD GFR <15 on [employer] 4 Units are mL/min/1.73 m2 Chronic Kidney Disease Staging per NKF: Stage I & II GFR >=60 Normal to Mildly Decreased Stage III GFR 30-59 Moderately Decreased Stage IV GFR 15-29 Severely Decreased Stage V GFR <15 Very Little GFR Left ESRD GFR <15 on [employer] 5 Units are mL/min/1.73 m2 Chronic Kidney Disease Staging per NKF: Stage I & II GFR >=60 Normal to Mildly Decreased Stage III GFR 30-59 Moderately Decreased Stage IV GFR 15-29 Severely Decreased Stage V GFR <15 Very Little GFR Left ESRD GFR <15 on [employer] 6 THERAPUTIC HUMAN INR VALUES INDICATIONS NORMAL RANGES PROPHYLAXIS/TREATMENT OF: VENOUS THROMBOSIS 2.0-3.0 PULMONARY EMBOLISM 2.0-3.0 PREVENTION OF SYSTEMIC EMBOLISM FROM: TISSUE HEART VALVES 2.0-3.0 ACUTE MYOCARDIAL INFARCTION 2.0-3.0 VALVULAR HEART DISEASE 2.0-3.0 ATRIAL FIBRILLATION 2.0-3.0 MECHANICAL VALVES(HIGH RISK) 2.5-3.5 RECURRENT MYOCARDIAL INFARCTION 2.5-3.5 7 Units are mL/min/1.73 m2 Chronic Kidney Disease Staging per NKF: Stage I & II GFR >=60 Normal to Mildly Decreased Stage III GFR 30-59 Moderately Decreased Stage IV GFR 15-29 Severely Decreased Stage V GFR <15 Very Little GFR Left ESRD GFR <15 on [employer] Procedures Date Code Description Status 10/22/2020 49316 Laparoscopy, Abdomen , Peritoneum & Omentum, Diagnostic W/Or W/O C Completed Medical Devices Description No Information Available Encounters Description No Information Available Assessments Date Code Description Provider 10/22/2020 K40.30 Unilateral inguinal hernia, with obstruction, without gangrene, not specified as recurrent Elliot Delgadillo DO Plan of Treatment Future Appointment(s):* 11/25/2020 11:15 am - Elliot Delgadillo DO at [facility] * 11/12/2020 7:30 am - Elliot Delgadillo DO at [facility] 08/29/2018 - Reji Wills M.D.* J93.83 Other pneumothorax* Follow up:* Discharge from care. * F10.10 Alcohol abuse, uncomplicated * J44.9 Chronic obstructive pulmonary disease, unspecified Functional Status Description No Information Available Mental Status Description No Information Available Referrals Description No Information Available
--- OUTSIDE RECORDS SUMMARY | 2020-11-12 06:22 | CCD ---
Author Author [facility] Organization [facility] Address Unknown Phone Unavailable Support Name Relationship Address Phone DISABLED Next Of Kin Unknown Unavailable [facility] [place] [address] [facility] Next Of Kin [address] [place] [address] MEHNAZ HODGES Next Of Kin [address] [facility] [address] [place] [address] UE Next Of Kin Unknown Unavailable Re-disclosure [...] is protected by Article 27-F of the [facility] Public Health law. If you continue you may have access to information: Regarding HIV / AIDS; Provided by facilities licensed or operated by the [facility] Office of Mental Health; or Provided by the [facility] Office for People With Developmental Disabilities. If such information is present, then the following [facility] mandated warning applies: This information has been [...] law may result in a fine or skilled nursing sentence or both. A general authorization for [...] Covered libertarian ID Covered libertarian's relationship to tran Policy Tran Plan Information SELF PAY ONLY [id number] SP [id number] O UNAVAILABLE UNAVAILA BLE EMEDNY [id number] SP [id number] MEDICARE [id number] SP [id number] PENDING GOVT INSURANCE [id number] SP [id number] UN COMMUNITY PLAN MCDO [id number] SP [id number] MEDICARE [id number] SP [id number] A [facility] [id number] MEDICAID [id number] S [id number] MEDICARE C [id number] S [id number] A [place] Primary Self SELF PAY ONLY UNAVAILABLE UNAV AILABLE SELF PAY UNAVAILABLE SP UNAVAILA BLE MEDICAID [id number] SP [id number] Surgeries/Procedures Procedure Description Date Indications Data Source(s) Laparoscopy, Abdomen, Peritoneum & Omentum, Diagnostic W/Or W/O C 10/22/2020 12:00:00 AM EST [facility] ([facility], ) Results ID Date Data Source [id number] 11/07/2020 12:00:00 PM EST [facility] Name Value Range Interpretation Code Description Data Molly rce(s) Supporting Document(s) SARS coronavirus 2 RNA Not Detected [facility] This lab was ordered by [facility] and reported by [facility]. ID Date Data Source [id number] 10/25/2020 05:38:00 AM EST [facility], ) Name Value Range Interpretation Code Description Data Molly rce(s) Supporting Document(s) Creatinine For GFR 0.50 mg/dL 0.70-1.30 Below low normal [facility] ([facility], ) Blood Urea Nitrogen 13 mg/dL 7-18 Normal (applies to non-nume luzma results) [facility] ([facility], ) Glucose, Fasting 73 mg/dL 70-100 Normal (applies to non-numeric results) [facility] ([facility]) Glomerular Filtration Rate Laboratory test result Normal (applies to non- numeric results) [facility], ) <content>Units are mL/min/1.73 m2</content>
<content></content>
<content>Chronic Kidney Disease Staging per NKF:</content>
<content></content>
<content>Stage I & II GFR >=60 Normal to Mildly Decreased</content>
<content>Stage III GFR 30-59 Moderately Decreased</content>
<content>Stage IV GFR 15-29 Severely Decreased</content>
<content>Stage V GFR <15 Very Little GFR Left</content>
<content>ESRD GFR <15 on CHARGE POSTER</content>
<content></content> Potassium Serum 3.2 meq/L 3.5-5.1 Below low normal [facility] ([facility], ) Sodium Level 138 meq/L 136-145 Normal (applies to non-numeric res ults) [facility] ([facility], ) Chloride Level 104 meq/L 98-107 Normal (applies to non-numeric r esults) [facility] ([facility], ) Carbon Dioxide Level 23 meq/L 21-32 Normal (applies to non-num mayo results) [facility] ([facility], ) Anion Gap 11 meq/L 8-16 Normal (applies to non-numeric resul ts) [facility] ([facility]) Ast/Sgot 13 U/L 7-37 Normal (applies to non-numeric resul ts) [facility] ([facility]) Calcium Level 7.6 mg/dL 8.8-10.2 Below low normal [facility] T ([facility], ) Alt/SGPT 14 U/L 12-78 Normal (applies to non-numeric resul ts) [facility] ([facility], ) Alkaline Phosphatase 50 U/L 45-117 Normal (applies to non-num mayo results) [facility], ) Bilirubin,Total 1.1 mg/dL 0.2-1.0 Above high normal [facility] ([facility]) Total Protein 5.3 GM/DL 6.4-8.2 Below low normal [facility] T ([facility]) Albumin/Globulin Ratio 0.9 Normal (applies to non-n umeric results) [facility] ([facility]) Albumin 2.5 GM/DL 3.2-5.2 Below low normal [facility] ( [facility]) ID Date Data Source [id number] 10/25/2020 05:38:00 AM EST [facility] ([facility]) Name Value Range Interpretation Code Description Data Molly rce(s) Supporting Document(s) White Blood Count 9.3 10 4.0-10.0 Normal (applies to non-numeri c results) [facility] ([facility]) Red Blood Count 4.38 10 4.30-6.10 Normal (applies to non-numeric results) [facility] ([facility]) Hemoglobin 14.1 g/dL 13.5-17.5 Normal (applies to non-numeric resul ts) [facility] ([facility]) Mean Corpuscular Volume 94.3 fl 80.0-96.0 Normal ( applies to non-numeric results) [facility] ([facility]) Hematocrit 41.3 % 42.0-52.0 Below low normal [facility] ( [facility]) Red Cell Distribution Width 11.9 % 11.5-14.5 Norm al (applies to non-numeric results) [facility] ([facility]) Mean Corpuscular HGB Conc 34.1 g/dL 32.0-36.5 Normal (applies to non-numeric results) [facility]) Mean Corpuscular Hemoglobin 32.2 pg 27.0-33.0 Norm al (applies to non-numeric results) [facility] ([facility]) Platelet Count, Automated 217 10 150-450 Normal (applies to non-numeric results) [facility]) Nucleated Red Blood Cell % 0.0 % 0-0 Normal (applies to n on-numeric results) [facility] ([facility]) ID Date Data Source [id number] 10/24/2020 08:37:00 AM [facility]) Name Value Range Interpretation Code Description Data Molly rce(s) Supporting Document(s) Lactate [Mass/volume] in Serum or Plasma 0.8 mmol/L 0.4-2.0 Normal (applies to non-numeric results) [facility] ([facility]) Comments: lab draw Comments: lab draw Y/N query for Sepsis Lactate Rule: Y ID Date Data Source [id number] 10/24/2020 06:34:00 AM [facility]) Name Value Range Interpretation Code Description Data Molly rce(s) Supporting Document(s) Creatinine For GFR 0.62 mg/dL 0.70-1.30 Below low normal [facility] ([facility]) Glucose, Fasting 73 mg/dL 70-100 Normal (applies to non-numeric results) [facility] ([facility]) Blood Urea Nitrogen 11 mg/dL 7-18 Normal (applies to non-nume luzma results) [facility] ([facility]) Sodium Level 138 meq/L 136-145 Normal (applies to non-numeric res ults) [facility] ([facility]) Glomerular Filtration Rate Laboratory test result Normal (applies to non- numeric results) [facility] ([facility]) <content>Units are mL/min/1.73 m2</content>
<content></content>
<content>Chronic Kidney Disease Staging per NKF:</content>
<content></content>
<content>Stage I & II GFR >=60 Normal to Mildly Decreased</content>
<content>Stage III GFR 30- 59 Moderately Decreased</content>
<content>Stage IV GFR 15-29 Severely Decreased</content>
<content>Stage V GFR <15 Very Little GFR Left</content>
<content>ESRD GFR <15 on CHARGE POSTER</content>
<content></content> Potassium Serum 3.9 meq/L 3.5-5.1 Normal (applies to non-numeric results) [facility] ([facility]) Anion Gap 7 meq/L 8-16 Below low normal [facility] ( [facility]) Carbon Dioxide Level 28 meq/L 21-32 Normal (applies to non-num mayo results) [facility] ([facility]) Chloride Level 103 meq/L 98-107 Normal (applies to non-numeric r esults) [facility] ([facility]) Calcium Level 8.1 mg/dL 8.8-10.2 Below low normal [facility] ([facility]) ID Date Data Source [id number] 10/24/2020 06:34:00 AM EST [facility] ([facility]) Name Value Range Interpretation Code Description Data Molly rce(s) Supporting Document(s) White Blood Count 9.9 10 4.0-10.0 Normal (applies to non-numeri c results) [facility] ([facility]) Hemoglobin 14.7 g/dL 13.5-17.5 Normal (applies to non-numeric resul ts) [facility] ([facility]) Red Blood Count 4.70 10 4.30-6.10 Normal (applies to non-numeric results) [facility] ([facility]) Mean Corpuscular Volume 96.6 fl 80.0-96.0 Above high normal [facility] ([facility]) Mean Corpuscular Hemoglobin 31.3 pg 27.0-33.0 Norm al (applies to non-numeric results) [facility] ([facility]) Hematocrit 45.4 % 42.0-52.0 Normal (applies to non-numeric resul ts) [facility]) Mean Corpuscular HGB Conc 32.4 g/dL 32.0-36.5 Normal (applies to non-numeric results) [facility]) Red Cell Distribution Width 12.3 % 11.5-14.5 Norm al (applies to non-numeric results) [facility] ([facility]) Platelet Count, Automated 211 10 150-450 Normal (applies to non-numeric results) [facility] ([facility]) Nucleated Red Blood Cell % 0.0 % 0-0 Normal (applies to n on-numeric results) [facility]) ID Date Data Source [id number] 10/23/2020 05:43:00 AM EST [facility] ([facility]) Name Value Range Interpretation Code Description Data Molly rce(s) Supporting Document(s) Glucose, Fasting 100 mg/dL 70-100 Normal (applies to non-numeric results) [facility] ([facility]) Creatinine For GFR 0.73 mg/dL 0.70-1.30 Normal (applies to non -numeric results) [facility] ([facility]) Blood Urea Nitrogen 9 mg/dL 7-18 Normal (applies to non-nume luzma results) [facility]) Sodium Level 142 meq/L 136-145 Normal (applies to non-numeric res ults) [facility] ([facility]) Glomerular Filtration Rate Laboratory test result Normal (applies to non- numeric results) [facility]) <content>Units are mL/min/1.73 m2</content>
<content></content>
<content>Chronic Kidney Disease Staging per NKF:</content>
<content></content>
<content>Stage I & II GFR >=60 Normal to Mildly Decreased</content>
<content>Stage III GFR 30- 59 Moderately Decreased</content>
<content>Stage IV GFR 15-29 Severely Decreased</content>
<content>Stage V GFR <15 Very Little GFR Left</content>
<content>ESRD GFR <15 on CHARGE POSTER</content>
<content></content> Potassium Serum 4.3 meq/L 3.5-5.1 Normal (applies to non-numeric results) [facility] ([facility]) Carbon Dioxide Level 28 meq/L 21-32 Normal (applies to non-num mayo results) [facility]) Chloride Level 105 meq/L 98-107 Normal (applies to non-numeric r esults) [facility] ([facility]) Anion Gap 9 meq/L 8-16 Normal (applies to non-numeric resul ts) [facility] ([facility]) Calcium Level 8.5 mg/dL 8.8-10.2 Below low normal [facility] ([facility]) ID Date Data Source [id number] 10/23/2020 05:43:00 AM EST [facility] ([facility]) Name Value Range Interpretation Code Description Data Molly rce(s) Supporting Document(s) Red Blood Count 4.76 10 4.30-6.10 Normal (applies to non-numeric results) [facility] ([facility]) White Blood Count 14.8 10 4.0-10.0 Above high normal [facility] ([facility]) Hemoglobin 15.3 g/dL 13.5-17.5 Normal (applies to non-numeric resul ts) [facility]) Hematocrit 45.6 % 42.0-52.0 Normal (applies to non-numeric resul ts) [facility] ([facility]) Mean Corpuscular Volume 95.8 fl 80.0-96.0 Normal ( applies to non-numeric results) [facility] ([facility]) Mean Corpuscular Hemoglobin 32.1 pg 27.0-33.0 Norm al (applies to non-numeric results) [facility] ([facility]) Platelet Count, Automated 212 10 150-450 Normal (applies to non-numeric results) [facility] ([facility]) Red Cell Distribution Width 12.4 % 11.5-14.5 Norm al (applies to non-numeric results) [facility] ([facility]) Mean Corpuscular HGB Conc 33.6 g/dL 32.0-36.5 Normal (applies to non-numeric results) [facility]) Nucleated Red Blood Cell % 0.0 % 0-0 Normal (applies to n on-numeric results) [facility]) ID Date Data Source [id number] 10/22/2020 05:29:00 AM EST [facility] ([facility]) Name Value Range Interpretation Code Description Data Molly rce(s) Supporting Document(s) Glucose, Fasting 113 mg/dL 70-100 Above high normal [facility] Creatinine For GFR 0.62 mg/dL 0.70-1.30 Below low normal [facility] ([facility]) Glomerular Filtration Rate Laboratory test result Normal (applies to non- numeric results) [facility] ([facility]) <content>Units are mL/min/1.73 m2</content>
<content></content>
<content>Chronic Kidney Disease Staging per NKF:</content>
<content></content>
<content>Stage I & II GFR >=60 Normal to Mildly Decreased</content>
<content>Stage III GFR 30- 59 Moderately Decreased</content>
<content>Stage IV GFR 15-29 Severely Decreased</content>
<content>Stage V GFR <15 Very Little GFR Left</content>
<content>ESRD GFR <15 on CHARGE POSTER</content>
<content></content> Blood Urea Nitrogen 15 mg/dL 7-18 Normal (applies to non-nume luzma results) [facility] ([facility]) Potassium Serum 3.9 meq/L 3.5-5.1 Significant change down [facility] ([facility]) Sodium Level 136 meq/L 136-145 Normal (applies to non-numeric res ults) [facility] ([facility]) Chloride Level 103 meq/L 98-107 Normal (applies to non-numeric r esults) [facility] ([facility]) Carbon Dioxide Level 25 meq/L 21-32 Normal (applies to non-num mayo results) [facility] ([facility]) Anion Gap 8 meq/L 8-16 Normal (applies to non-numeric resul ts) [facility] ([facility]) Calcium Level 7.7 mg/dL 8.8-10.2 Below low normal [facility] ([facility]) ID Date Data Source [id number] 10/22/2020 05:29:00 AM EST [facility] ([facility]) Name Value Range Interpretation Code Description Data Molly rce(s) Supporting Document(s) White Blood Count 14.1 10 4.0-10.0 Above high normal [facility] ([facility]) Red Blood Count 4.75 10 4.30-6.10 Normal (applies to non-numeric results) [facility] ([facility]) Mean Corpuscular Volume 94.7 fl 80.0-96.0 Normal ( applies to non-numeric results) [facility] ([facility]) Hematocrit 45.0 % 42.0-52.0 Normal (applies to non-numeric resul ts) [facility]) Hemoglobin 15.0 g/dL 13.5-17.5 Significant change down [facility]) Red Cell Distribution Width 12.5 % 11.5-14.5 Norm al (applies to non-numeric results) [facility] ([facility]) Mean Corpuscular Hemoglobin 31.6 pg 27.0-33.0 Norm al (applies to non-numeric results) [facility]) Mean Corpuscular HGB Conc 33.3 g/dL 32.0-36.5 Normal (applies to non-numeric results) [facility]) Nucleated Red Blood Cell % 0.0 % 0-0 Normal (applies to n on-numeric results) [facility] ([facility]) Platelet Count, Automated 214 10 150-450 Normal (applies to non-numeric results) [facility]) ID Date Data Source [id number] 10/21/2020 04:08:00 PM [facility] ([facility]) Name Value Range Interpretation Code Description Data Molly rce(s) Supporting Document(s) Creatinine For GFR 0.80 mg/dL 0.70-1.30 Normal (applies to non -numeric results) [facility]) Glucose, Fasting 124 mg/dL 70-100 Above high normal [facility]) Blood Urea Nitrogen 18 mg/dL 7-18 Normal (applies to non-nume luzma results) [facility] ([facility], ) Potassium Serum 5.1 meq/L 3.5-5.1 Normal (applies to non-numeric results) [facility] ([facility]) Sodium Level 138 meq/L 136-145 Normal (applies to non-numeric res ults) [facility] ([facility], ) Glomerular Filtration Rate Laboratory test result Normal (applies to non- numeric results) [facility] ([facility], ) <content>Units are mL/min/1.73 m2</content>
<content></content>
<content>Chronic Kidney Disease Staging per NKF:</content>
<content></content>
<content>Stage I & II GFR >=60 Normal to Mildly Decreased</content>
<content>Stage III GFR 30- 59 Moderately Decreased</content>
<content>Stage IV GFR 15-29 Severely Decreased</content>
<content>Stage V GFR <15 Very Little GFR Left</content>
<content>ESRD GFR <15 on CHARGE POSTER</content>
<content></content> Anion Gap 7 meq/L 8-16 Below low normal [facility], ) Carbon Dioxide Level 27 meq/L 21-32 Normal (applies to non-num mayo results) [facility] ([facility], ) Chloride Level 104 meq/L 98-107 Normal (applies to non-numeric r esults) [facility] ([facility]) Ast/Sgot 18 U/L 7-37 Normal (applies to non-numeric resul ts) [facility] ([facility]) Alt/SGPT 26 U/L 12-78 Normal (applies to non-numeric resul ts) [facility] ([facility]) Calcium Level 8.4 mg/dL 8.8-10.2 Below low normal [facility] ([facility]) Total Protein 6.1 GM/DL 6.4-8.2 Below low normal [facility] ([facility], ) Alkaline Phosphatase 82 U/L 45-117 Normal (applies to non-num mayo results) [facility]) Bilirubin,Total 0.8 mg/dL 0.2-1.0 Normal (applies to non-numeric results) [facility]) Albumin/Globulin Ratio 1.3 Normal (applies to non-n umeric results) [facility]) Albumin 3.5 GM/DL 3.2-5.2 Normal (applies to non-numeric resul ts) [facility]) ID Date Data Source [id number] 10/21/2020 04:08:00 PM EST [facility]) Name Value Range Interpretation Code Description Data Molly rce(s) Supporting Document(s) Prothrombin Time 13.9 s 12.5-14.3 Normal (applies to non-numeric results) [facility]) Inr 1.05 Normal (applies to non-numeric resul ts) [facility]) THERAPUTIC HUMAN INR VALUES INDICATIONS NORMAL RANGES PROPHYLAXIS/TREATMENT OF: VENOUS THROMBOSIS 2.0-3.0 PULMONARY EMBOLISM 2.0-3.0 PREVENTION OF SYSTEMIC EMBOLISM FROM: TISSUE HEART VALVES 2.0-3.0 ACUTE MYOCARDIAL INFARCTION 2.0-3.0 VALVULAR HEART DISEASE 2.0-3.0 ATRIAL FIBRILLATION 2.0-3.0 MECHANICAL VALVES(HIGH RISK) 2.5-3.5 RECURRENT MYOCARDIAL INFARCTION 2.5-3.5 Partial Thromboplastin Time 28.1 s 24.2-38.5 Norm al (applies to non-numeric results) [facility]) ID Date Data Source [id number] 10/21/2020 11:24:00 AM EST [facility] Name Value Range Interpretation Code Description Data Molly rce(s) Supporting Document(s) SARS coronavirus 2 RNA [Presence] in Res piratory specimen by ELIU with probe detection NEGATIVE [facility] This lab was ordered by [facility] a nd reported by [facility]. Procedure Vital Signs ID Date Data Source [id number] Name Value Range Interpretation Code Description Data Source(s) Body surface area Derived from formula 1.58 m2 1.58 m2 [facility]) Body weight 54.489 kg 54.489 kg [facility] ([facility], ) [place] body weight 130 [lb_av] 130 [lb_av] [facility] ([facility], ) Body mass index (BMI) [Ratio] 20.6 kg/m2 20.6 k g/m2 [facility] ([facility], ) Body weight 120.12 [lb_av] 120.12 [lb_av] [facility] ) Body height 64 [in_i] 64 [in_i] [facility] ([facility], ) 5'4" Diastolic blood pressure 88 mm[Hg] 88 mm[Hg] [facility] ([facility], ) Systolic blood pressure 172 mm[Hg] 172 mm[Hg] Arnav POWELL ([facility], )
[2020-11-12] MEDS ORDERED: AMLO1TAB24 PO (06:41)
[2020-11-12] MEDS ORDERED: ALBU8.5H INH (06:41)
[2020-11-12] MEDS ORDERED: propofoL 200 MG/20 ML VIAL As Ordered ONE (06:58)
[2020-11-12] MEDS ORDERED: LIDOCAINE 2% 100MG/5ML SDV (FOR ANES.) As Ordered ONE (06:58)
[2020-11-12] MEDS ORDERED: ROCURONIUM BROMIDE 50 MG/5 ML VIAL As Ordered ONE (06:58)
[2020-11-12] MEDS ORDERED: ONDANSETRON 4MG/2ML VIAL As Ordered ONE (06:58)
[2020-11-12] MEDS ORDERED: dexameTHASONE 4 MG/ML 1ML VIAL (J1100 PER 1MG) As Ordered ONE (06:59)
[2020-11-12] MEDS ORDERED: MIDAZOLAM INJ 2MG/2ML VIAL (J2250 PER 1MG) As Ordered ONE (06:59)
[2020-11-12] MEDS ORDERED: fentaNYL 100 MCG/2 ML INJECTION (J3010) As Ordered ONE ×2 (06:59→08:18)
[2020-11-12] MEDS ORDERED: LR 1,000 ML IV ONE (07:00)
[2020-11-12] MEDS ORDERED: ceFAZolin SOD 2 GM in IV 1 EA IV ONE (07:00)
[2020-11-12] MEDS ORDERED: BUPIVACAINE/EPIN 0.25% 30 ML VIAL As Ordered ONE (07:18)
[2020-11-12] MEDS ORDERED: KETOROLAC 60MG 2ML VIAL As Ordered ONE (07:57)
[2020-11-12] MEDS ORDERED: SUGAMMADEX SODIUM 500 MG/5 ML VIAL (BRIDION) As Ordered ONE (07:57)
[2020-11-12] MEDS ORDERED: ACETAMINOPHEN 1000MG 100ML IV BTL (OFIRMEV) (J0131 PER 10MG) As Ordered ONE (07:57)
[2020-11-12] MEDS ORDERED: oxyCODONE 5MG TAB As Ordered ONE (09:33)
[2020-11-12] MEDS ORDERED: ONDANSETRON 4MG/2ML VIAL IV PRN (09:45)
[2020-11-12] MEDS ORDERED: LR 1,000 ML IV SCH (09:45)
[2020-11-12] MEDS ORDERED: NORCO, ANEXSIA 5/325MG TABLET (HYDROcodone/ACETAMINOPHEN) PO PRN (09:45)
[2020-11-12] MEDS ORDERED: oxyCODONE 5MG TAB PO PRN (09:45)
[2020-11-12] MEDS ORDERED: fentaNYL 100 MCG/2 ML INJECTION (J3010) IV PRN (09:45)
[2020-11-12 11:15] VITALS: BP 168/93
--- NOTE | 2020-11-12 15:26 | RO ---
OPERATIVE NOTE DATE OF OPERATION: 11/12/2020 PREOPERATIVE DIAGNOSIS: Incarcerated right inguinal hernia. POSTOPERATIVE DIAGNOSIS: Incarcerated right inguinal hernia. PROCEDURE: Robotic incarcerated right inguinal hernia. SURGEON: Dr. Delgadillo POSTER: Brook Valentin ANESTHESIA: General. ESTIMATED BLOOD LOSS: 5. COMPLICATIONS: None. INDICATIONS FOR PROCEDURE: Patient is a 65-year-old male who presents with a history of incarcerated right inguinal hernia. Recommendation was to proceed with robotic repair. Risks and benefits of the procedure, not limited to, but including, bleeding, infection, hernia recurrence, hernia formation, damage to surrounding structures, and need for further surgery were discussed in detail with the patient. Informed consent was obtained, and procedure was planned. DESCRIPTION OF PROCEDURE: Patient was brought back to operating room #7. After sufficient sedation, the abdomen was sterilely prepped and draped. Next, a time-out was done to confirm proper patient and proper procedure. Following that, a 5 mm incision was made in the left upper quadrant. Veress needle inserted, and the abdomen was insufflated to 15 mmHg. Veress needle was then removed. Then an 8 mm Optiview port was used to gain access to the abdomen. Once the abdomen was entered, two more ports were placed across the upper abdomen. Robot was then docked at the ports. Next, from the console the right lower quadrant was examined. The small bowel was reduced out of the hernia sac in the indirect hernia. The preperitoneum was then entered with a horizontal incision into the peritoneum. The preperitoneal space was then dissected free using a combination of blunt and sharp dissection. Once the preperitoneal space was dissected all the way over to the pubic symphysis, then the hernia sac was elevated up. All the cord structures were dissected off of it. The hernia sac was then encircled and carefully dissected free distally, heading down into the scrotum. The hernia sac was very long. Once I got about three-quarters of the way down it, I started to visualize the testicle. Due to the increased vascularity of the area, I decided to ligate the hernia sac and then finished dissecting it free posteriorly. The Bard 3DMax Light medium mesh was placed into the right preperitoneal space, sutured to the pubic symphysis using a 3-0 Vicryl suture. The peritoneum was then closed with a running 3-0 V-Loc. Once that was completed, the abdomen was desufflated, needles were removed, the abdomen was cleaned and dried. Skin incisions were closed with 4-0 Vicryl subcuticular sutures. Steri-Strips, 4 x 4, and tape were applied, thus ending the procedure.
== END 2020-11-12 11:31 | disposition home or self-care (01) ==
LOC: M SDC 06:14
PROVIDERS: ATTEND Surgery
DX: K40.30 Unilateral inguinal hernia, with obstruction, without gangrene, not specified as recurrent (principal); F17.298 Nicotine dependence, other tobacco product, with other nicotine-induced disorders; I10 Essential (primary) hypertension; J44.9 Chronic obstructive pulmonary disease, unspecified; R51.9 Headache, unspecified; Z79.899 Other long term (current) drug therapy; Z87.09 Personal history of other diseases of the respiratory system; Z88.8 Allergy status to other drugs, medicaments and biological substances; Z86.19 Personal history of other infectious and parasitic diseases
CPT/HCPCS: 49650; C1781; J0131; J0690; J1100; J1885; J2250; J2405; J3010; S2900

== ENCOUNTER → 2020-12-27 | Outpatient (CLI) | payer MEDICAID ==
[~2020-12-27] MED LIST changes: +ALBU8.5H INH; +AMLO1TAB24 PO
--- NOTE | 2020-12-27 11:21 | PFTRPT ---
Site: [facility], [address] [place], [place], [address] ID: [id number] Name: LUCERO HODGES Visit Date: 12/27/2020 Second ID: [id number] Referring Doctor: Pao Dunbar MD Reviewing Doctor: Rudolph Nash MD Track Layer Head: Janna GARVIN, AIDE Age: 65 : 1955 Sex: Male Race: Height: 66.00 Inches Weight: 115.00 Lbs BSA: 1.58 Order IDs: [id number] Requested Test(s): <RESP-PFT.PFT B/A> Diagnosis: J44.9 of albuterol for post bronchodilator. The results of this test appear to be valid, although the ATS standard for "end of test" was not met. Review Status: Not Reviewed Pre-Bronch Post-Bronch Pred Actual %Pred Actual %Chng SPIROMETRY FVC (L) 3.96 2.99 75 2.93 -1 FEV1 (L) 2.95 1.69 57 1.79 6 FEV1/FVC (%) 75 57 75 61 8 FEF 25% (L/sec) 5.92 2.24 37 2.74 22 FEF 50% (L/sec) 3.64 1.02 27 1.09 6 FEF 75% (L/sec) 1.02 0.30 28 0.39 31 FEF 25-75% (L/sec) 2.37 0.77 32 0.88 13 FEF Max (L/sec) 7.97 3.15 39 3.92 24 FIVC (L) 3.00 2.84 -5 FIF 50% (L/sec) 4.60 4.76 103 4.49 -5 FIF Max (L/sec) 4.82 4.64 -3 MVV (L/min) 121 57 47 Expiratory Time (sec) 7.33 6.70 -8 Back Extrap Vol (L) 0.08 0.06 -15 Time To FEFmax (sec) 0.141 0.092 -34 LUNG VOLUMES SVC (L) 4.08 3.12 76 IC (L) 2.99 1.44 48 ERV (L) 1.09 1.68 153 TGV (L) 3.21 4.14 128 RV (Pleth) (L) 2.12 2.46 115 TLC (Pleth) (L) 6.20 5.57 89 RV/TLC (Pleth) (%) 34 44 129 DIFFUSION DLCOunc (ml/min/mmHg) 25.66 13.53 52 DL/VA (ml/min/mmHg/L) 4.14 3.23 77 VA (L) 6.20 4.19 67 BHT (sec) 9.94 IVC (L) 2.60 TLC (SB) (L) 4.34 AIRWAYS RESISTANCE Raw (cmH2O/L/s) 1.45 1.04 71 Gaw (L/s/cmH2O) 1.03 0.97 94 sRaw (cmH2O*s) 4.76 4.24 89 sGaw (1/cmH2O*s) 0.20 0.24 119
[2020-12-27 12:19] LABS: BLOOD UREA NITROGEN 14 MG/DL (7-18); CALCIUM LEVEL 9.1 MG/DL (8.8-10.2); CARBON DIOXIDE LEVEL 27 MEQ/L (21-32); CHLORIDE LEVEL 103 MEQ/L (98-107); CREATININE FOR GFR 0.62 MG/DL (0.70-1.30); GLOMERULAR FILTRATION RATE > 60.0 (>49); GLUCOSE, FASTING 101 MG/DL (70-100); POTASSIUM SERUM 4.3 MEQ/L (3.5-5.1); SODIUM LEVEL 137 MEQ/L (136-145)
== END ==
LOC: M CARPUL 10:39
PROVIDERS: ATTEND Family Medicine
DX: J44.9 Chronic obstructive pulmonary disease, unspecified (principal); I10 Essential (primary) hypertension

== ENCOUNTER → 2021-01-10 | Outpatient (REF) | payer MEDICAID ==
[2021-01-10 11:02] LABS: HEMATOCRIT 53.3 % (42.0-52.0); HEMOGLOBIN 18.1 g/dl (13.5-17.5); MEAN CORPUSCULAR HEMOGLOBIN 32.3 pg (27.0-33.0); MEAN CORPUSCULAR VOLUME 95.2 fl (80.0-96.0); PLATELET COUNT, AUTOMATED 249 10^3/uL (150-450); WHITE BLOOD COUNT 6.8 10^3/uL (4.0-10.0)
[2021-01-10 11:27] LABS: THYROID STIMULATING HORMONE 0.776 uIU/ML (0.358-3.740)
== END ==
LOC: M SFHCPLAZ 08:54
PROVIDERS: ATTEND Family Medicine
DX: R53.83 Other fatigue (principal)

== ENCOUNTER → 2021-01-27 | Outpatient (REF) | payer MEDICAID ==
[2021-01-27 12:53] LABS: BASO # 0.1 10^3/uL (0.0-0.2); BASO % 1.1 % (0.0-1.0); EOS # 0.1 10^3/uL (0.0-0.5); EOS % 1.1 % (0.0-3.0); HEMATOCRIT 52.8 % (42.0-52.0); HEMOGLOBIN 17.8 g/dl (13.5-17.5); LYMPH # 1.6 10^3/uL (1.5-5.0); LYMPH % 22.7 % (24.0-44.0); MEAN CORPUSCULAR HEMOGLOBIN 31.4 pg (27.0-33.0); MEAN CORPUSCULAR HGB CONC 33.7 g/dl (32.0-36.5); MEAN CORPUSCULAR VOLUME 93.3 fl (80.0-96.0); MONO # 0.6 10^3/uL (0.0-0.8); MONO % 8.3 % (2.0-8.0); NEUTROPHILS # 4.8 10^3/uL (1.5-8.5); NEUTROPHILS % 66.4 % (36.0-66.0); PLATELET COUNT, AUTOMATED 261 10^3/uL (150-450); RED BLOOD COUNT 5.66 10^6/uL (4.30-6.10); WHITE BLOOD COUNT 7.2 10^3/uL (4.0-10.0)
[2021-01-27 13:40] LABS: ALBUMIN 4.1 GM/DL (3.2-5.2); ALT/SGPT 27 U/L (12-78); BILIRUBIN,TOTAL 0.8 MG/DL (0.2-1.0); BLOOD UREA NITROGEN 12 MG/DL (7-18); CALCIUM LEVEL 9.8 MG/DL (8.8-10.2); CARBON DIOXIDE LEVEL 28 MEQ/L (21-32); CHLORIDE LEVEL 102 MEQ/L (98-107); CREATININE FOR GFR 0.56 MG/DL (0.70-1.30); GLOMERULAR FILTRATION RATE > 60.0 (>49); GLUCOSE, FASTING 97 MG/DL (70-100); POTASSIUM SERUM 4.4 MEQ/L (3.5-5.1); SODIUM LEVEL 136 MEQ/L (136-145); THYROID STIMULATING HORMONE 0.922 uIU/ML (0.358-3.740); TOTAL PROTEIN 7.3 GM/DL (6.4-8.2)
== END ==
LOC: M SFHCPLAZ 09:28
PROVIDERS: ATTEND Family Medicine
DX: D58.2 Other hemoglobinopathies (principal); R53.83 Other fatigue; J06.9 Acute upper respiratory infection, unspecified

== ENCOUNTER → 2021-02-23 | Outpatient (CLI) | payer MEDICARE, MEDICAID ==
--- NOTE | 2021-02-27 18:30 | REP ---
INDICATION: NICOTINE DEPNED COMPARISON: 08/10/2018 TECHNIQUE: Axial noncontrast images from the thoracic inlet to the upper abdomen using low-dose lung screening technique (LDCT). FINDINGS: Diffuse COPD/emphysematous changes noted. No acute consolidation, significant nodule, or mass lesion appreciated. Scarring at the right lung base likely related to prior pneumothorax. No pleural effusion. No current pneumothorax. Tracheobronchial tree is patent. IMPRESSION: 1. Lung-RADS category 2-S. No acute suspicious nodule or mass. 2. Stable chronic changes including COPD/emphysematous disease and few small stable nodules compared with 2015. Irregular presumed scarring at the right lung base likely related to old healed pneumothorax. However, no recent prior examinations available to confirm these findings as chronic. Consider 6-9 month follow-up to confirm stability. <Electronically signed by Remi Garrett > 02/27/21 [id number]
== END ==
LOC: M RAD 07:42
PROVIDERS: ATTEND Family Medicine
DX: Z12.2 Encounter for screening for malignant neoplasm of respiratory organs (principal); F17.298 Nicotine dependence, other tobacco product, with other nicotine-induced disorders; J43.9 Emphysema, unspecified; R91.8 Other nonspecific abnormal finding of lung field; F17.218 Nicotine dependence, cigarettes, with other nicotine-induced disorders

== ENCOUNTER → 2021-07-20 | Outpatient (REF) | payer MEDICARE, MEDICAID | LOC: M SFHCPLAZ 12:58 | PROVIDERS: ATTEND Physician Assistant | DX: R05.9 Cough, unspecified (principal) | CPT/HCPCS: 87426; G0463; U0003 ==

== ENCOUNTER → 2021-09-13 | Outpatient (CLI) | payer MEDICAID, MEDICARE ==
--- NOTE | 2021-09-13 08:47 | REP ---
INDICATION: ABNORMAL CT LUNG SCREENING COMPARISON: 02/23/2021 TECHNIQUE: Axial noncontrast images from the thoracic inlet to the upper abdomen with coronal and sagittal reformations. This CT examination was performed using the following dose reduction techniques: Automated exposure control, adjustment of mA and/or kv according to the patient's size, and use of iterative reconstruction technique. FINDINGS: Chronic COPD/emphysematous changes with scattered chronic scarring primarily involving the right hemithorax are stable. Superimposed scattered bilateral small nodular opacities are now appreciated and suggest a superimposed acute inflammatory/pneumonic process. No effusion. No pneumothorax. Mild reactive adenopathy is suggested. Mediastinum demonstrates stable atherosclerotic changes to the thoracic aorta and coronary arteries without cardiomegaly or pericardial effusion. Surrounding musculoskeletal structures are stable. IMPRESSION: 1. Stable chronic changes. 2. Subtle scattered superimposed small nodular opacities suggest an acute process. Correlation is recommended including evaluation for COVID-19 pulmonary disease. <Electronically signed by Remi Garrett > 09/13/21 [id number]
== END ==
LOC: M RAD 07:24
PROVIDERS: ATTEND Family Medicine
DX: R91.8 Other nonspecific abnormal finding of lung field (principal)

== ENCOUNTER → 2021-12-15 | Outpatient (CLI) | payer MEDICAID, MEDICARE | LOC: M RAD 08:37 | PROVIDERS: ATTEND Family Medicine | DX: R91.8 Other nonspecific abnormal finding of lung field (principal); N20.0 Calculus of kidney; R93.89 Abnormal findings on diagnostic imaging of other specified body structures ==

== ENCOUNTER → 2022-02-17 | Outpatient (CLI) | payer MEDICARE ==
[2022-02-17 11:24] LABS: HEMATOCRIT 52.9 % (42.0-52.0); HEMOGLOBIN 18.1 g/dl (13.5-17.5); MEAN CORPUSCULAR HEMOGLOBIN 32.6 pg (27.0-33.0); MEAN CORPUSCULAR HGB CONC 34.2 g/dl (32.0-36.5); MEAN CORPUSCULAR VOLUME 95.1 fl (80.0-96.0); PLATELET COUNT, AUTOMATED 265 10^3/uL (150-450); RED BLOOD COUNT 5.56 10^6/uL (4.30-6.10); WHITE BLOOD COUNT 7.3 10^3/uL (4.0-10.0)
[2022-02-17 11:41] LABS: BLOOD UREA NITROGEN 15 MG/DL (7-18); CALCIUM LEVEL 9.8 MG/DL (8.8-10.2); CARBON DIOXIDE LEVEL 29 MEQ/L (21-32); CHLORIDE LEVEL 105 MEQ/L (98-107); CREATININE FOR GFR 0.58 MG/DL (0.70-1.30); GLOMERULAR FILTRATION RATE > 60.0 (>49); GLUCOSE, FASTING 102 MG/DL (70-100); POTASSIUM SERUM 4.7 MEQ/L (3.5-5.1); SODIUM LEVEL 140 MEQ/L (136-145)
== END ==
LOC: M PLALAB 08:13
PROVIDERS: ATTEND Family Medicine
DX: D58.2 Other hemoglobinopathies (principal); I10 Essential (primary) hypertension

== ENCOUNTER → 2022-03-16 | Outpatient (CLI) | payer MEDICARE | LOC: M SOG 07:51 | PROVIDERS: ATTEND Orthopaedic Surgery Hand Surgery | DX: M79.642 Pain in left hand (principal); M79.641 Pain in right hand; M19.041 Primary osteoarthritis, right hand; M19.042 Primary osteoarthritis, left hand ==

== ENCOUNTER → 2022-10-19 | Outpatient (CLI) | payer MEDICAID, MEDICARE ==
[2022-10-19 10:49] LABS: BASO # 0.1 10^3/uL (0.0-0.2); BASO % 1.2 % (0.0-1.0); EOS # 0.2 10^3/uL (0.0-0.5); EOS % 2.6 % (0.0-3.0); LYMPH # 1.7 10^3/uL (1.5-5.0); LYMPH % 22.3 % (24.0-44.0); MEAN CORPUSCULAR HEMOGLOBIN 32.3 pg (27.0-33.0); MEAN CORPUSCULAR HGB CONC 34.2 g/dl (32.0-36.5); MEAN CORPUSCULAR VOLUME 94.5 fl (80.0-96.0); MONO # 0.7 10^3/uL (0.0-0.8); MONO % 9.1 % (2.0-8.0); NEUTROPHILS % 64.4 % (36.0-66.0); PLATELET COUNT, AUTOMATED 279 10^3/uL (150-450); RED BLOOD COUNT 5.26 10^6/uL (4.30-6.10); WHITE BLOOD COUNT 7.8 10^3/uL (4.0-10.0)
[2022-10-19 10:52] LABS: HEMATOCRIT 49.7 % (42.0-52.0)
[2022-10-19 10:55] LABS: ERYTHROCYTE SEDIMENTATION RATE 8 mm/hr (0-20)
[2022-10-19 11:17] LABS: ALKALINE PHOSPHATASE 111 U/L (46-116); ALT/SGPT 46 U/L (7.0-40); AST/SGOT 39 U/L (<34); BILIRUBIN,TOTAL 1.1 MG/DL (0.3-1.2); BLOOD UREA NITROGEN 15 MG/DL (9-23); CALCIUM LEVEL 9.3 MG/DL (8.3-10.6); CARBON DIOXIDE LEVEL 26 MMOL/L (20-31); CHLORIDE LEVEL 102 MMOL/L (98-107); CHOLESTEROL LEVEL 173 MG/DL (<200); CHOLESTEROL RISK RATIO 1.82 (<5); CREATININE FOR GFR 0.54 MG/DL (0.70-1.30); GLOMERULAR FILTRATION RATE > 60.0 (>49); GLUCOSE, FASTING 97 MG/DL (74-106); HDL CHOLESTEROL 94.9 MG/DL (>40); LDL CHOLESTEROL 66.9 MG/DL (<100); NON-HDL-C 78 MG/DL; POTASSIUM SERUM 4.3 MMOL/L (3.5-5.1); SODIUM LEVEL 136 MMOL/L (136-145); THYROID STIMULATING HORMONE 0.741 uIU/ML (0.55-4.78); TRIGLYCERIDES LEVEL 56 MG/DL (<150)
== END ==
LOC: M PLALAB 08:10
PROVIDERS: ATTEND Physician Assistant
DX: I10 Essential (primary) hypertension (principal); E78.5 Hyperlipidemia, unspecified; R61 Generalized hyperhidrosis

== ENCOUNTER → 2022-11-30 | Outpatient (CLI) | payer MEDICARE ==
[2022-11-30 16:28] LABS: CPK CREATINE PHOSPHOKINASE 79 U/L (46-171)
[2022-11-30 16:32] LABS: ALBUMIN 3.8 G/DL (3.2-5.2); ALKALINE PHOSPHATASE 121 U/L (46-116); ALT/SGPT 26 U/L (7.0-40); AST/SGOT 25 U/L (<34); BILIRUBIN,TOTAL 0.7 MG/DL (0.3-1.2); BLOOD UREA NITROGEN 9 MG/DL (9-23); CALCIUM LEVEL 9.5 MG/DL (8.3-10.6); CARBON DIOXIDE LEVEL 28 MMOL/L (20-31); CHLORIDE LEVEL 102 MMOL/L (98-107); CK-MB VALUE MASS 2.9 NG/ML (<3.6); CREATININE FOR GFR 0.55 MG/DL (0.70-1.30); GLOMERULAR FILTRATION RATE > 60.0 (>49); GLUCOSE, FASTING 75 MG/DL (74-106); MAGNESIUM LEVEL 1.8 MG/DL (1.8-2.4); MB/CK RELATIVE INDEX 3.67 (< OR =4); POTASSIUM SERUM 4.8 MMOL/L (3.5-5.1); SODIUM LEVEL 137 MMOL/L (136-145); THYROID STIMULATING HORMONE 0.912 uIU/ML (0.55-4.78); TOTAL PROTEIN 6.7 G/DL (5.7-8.2)
[2022-11-30 16:51] LABS: BASO # 0.1 10^3/uL (0.0-0.2); BASO % 1.1 % (0.0-1.0); EOS # 0.1 10^3/uL (0.0-0.5); EOS % 1.1 % (0.0-3.0); HEMATOCRIT 50.8 % (42.0-52.0); HEMOGLOBIN 17.1 g/dl (13.5-17.5); LYMPH # 2.2 10^3/uL (1.5-5.0); LYMPH % 24.2 % (24.0-44.0); MEAN CORPUSCULAR HGB CONC 33.7 g/dl (32.0-36.5); MONO # 0.8 10^3/uL (0.0-0.8); MONO % 8.8 % (2.0-8.0); NEUTROPHILS # 5.7 10^3/uL (1.5-8.5); NEUTROPHILS % 64.3 % (36.0-66.0); PLATELET COUNT, AUTOMATED 340 10^3/uL (150-450); RED BLOOD COUNT 5.35 10^6/uL (4.30-6.10); WHITE BLOOD COUNT 8.9 10^3/uL (4.0-10.0)
== END ==
LOC: M PLALAB 11:20
PROVIDERS: ATTEND Physician Assistant
DX: R94.31 Abnormal electrocardiogram [ECG] [EKG] (principal); I10 Essential (primary) hypertension

== ENCOUNTER → 2022-12-18 | Outpatient (CLI) | payer MEDICARE | LOC: M RAD 06:25 | PROVIDERS: ATTEND Physician Assistant | DX: Z12.2 Encounter for screening for malignant neoplasm of respiratory organs (principal); Z13.6 Encounter for screening for cardiovascular disorders; F17.210 Nicotine dependence, cigarettes, uncomplicated; J43.9 Emphysema, unspecified; J47.9 Bronchiectasis, uncomplicated; I70.0 Atherosclerosis of aorta; I25.10 Atherosclerotic heart disease of native coronary artery without angina pectoris ==

== ENCOUNTER 2023-01-16 06:15 | Day surgery (SDC) | payer MEDICARE ==
[~2023-01-16] VITALS: Ht 167.6 cm; Wt 48.5 kg
[~2023-01-16 06:15] MED LIST changes: +ANOR1AER IN; +CYCLOPENTOLATE 1% OPHTH SOLN 2ML BTL OD SCH; +FLUT15.820; +OFLOXACIN 0.3 % (OCUFLOX) OPTH SOL 5ML OD SCH; +PHENYLEPHRINE 2.5% OPHTH SOL 2ML OD SCH; +PROPARACAINE 0.5% OPHTH SOL 15ML OD ONE; +SERT25TA85 PO; +TROPICAMIDE 1% OPHTH SOLN 15ML OD SCH; +VARE1TAB7 PO
[2023-01-16] MEDS ORDERED: BSS IRR 500ML/OMIDRIA 4ML IRR BAG (OR ONLY) As Ordered ONE (06:45)
[2023-01-16] MEDS ORDERED: LIDOCAINE 1% SDV 5ML VIAL As Ordered ONE (06:45)
[2023-01-16] MEDS ORDERED: CEFUROXIME 1MG/0.1ML INTRACAMERAL INJ As Ordered ONE (06:45)
[2023-01-16] MEDS ORDERED: MIDAZOLAM INJ 2MG/2ML VIAL As Ordered ONE (07:18)
[2023-01-16] MEDS ORDERED: fentaNYL 100 MCG/2 ML INJECTION As Ordered ONE (07:18)
[2023-01-16 08:07] VITALS: BP 126/75
== END 2023-01-16 08:31 | disposition home or self-care (01) ==
LOC: M SDC 06:15
PROVIDERS: ATTEND Ophthalmology
DX: H25.11 Age-related nuclear cataract, right eye (principal); F41.9 Anxiety disorder, unspecified; I10 Essential (primary) hypertension; J44.9 Chronic obstructive pulmonary disease, unspecified; R06.83 Snoring; M16.0 Bilateral primary osteoarthritis of hip; Z88.8 Allergy status to other drugs, medicaments and biological substances; Z79.52 Long term (current) use of systemic steroids; Z79.899 Other long term (current) drug therapy
CPT/HCPCS: 66984; J0697; J1097; J2250; J3010; V2632

== ENCOUNTER → 2023-01-25 | Outpatient (CLI) | payer MEDICARE ==
[~2023-01-25] MED LIST changes: -CYCLOPENTOLATE 1% OPHTH SOLN 2ML BTL OD SCH; -OFLOXACIN 0.3 % (OCUFLOX) OPTH SOL 5ML OD SCH; -PHENYLEPHRINE 2.5% OPHTH SOL 2ML OD SCH; -PROPARACAINE 0.5% OPHTH SOL 15ML OD ONE; -TROPICAMIDE 1% OPHTH SOLN 15ML OD SCH
== END ==
LOC: M PLAIMG 07:57
PROVIDERS: ATTEND Physician Assistant
DX: R63.4 Abnormal weight loss (principal); J44.1 Chronic obstructive pulmonary disease with (acute) exacerbation

== ENCOUNTER → 2023-04-17 | Outpatient (CLI) | payer MEDICARE ==
[2023-04-17 10:47] LABS: C REACTIVE PROTEIN QUANTITATIV < 0.40 MG/DL (<1.0)
[2023-04-17 10:48] LABS: IRON (FE) 108 UG/DL (65-175)
[2023-04-17 10:49] LABS: ALKALINE PHOSPHATASE 104 U/L (46-116); ALT/SGPT 27 U/L (7.0-40); AST/SGOT 21 U/L (<34); BILIRUBIN,TOTAL 1.1 MG/DL (0.3-1.2); BLOOD UREA NITROGEN 14 MG/DL (9-23); CALCIUM LEVEL 9.1 MG/DL (8.3-10.6); CARBON DIOXIDE LEVEL 29 MMOL/L (20-31); CHLORIDE LEVEL 100 MMOL/L (98-107); CREATININE FOR GFR 0.46 MG/DL (0.70-1.30); FERRITIN 197.2 NG/ML (10.5-307.3); FREE T4 1.02 NG/DL (0.89-1.76); GLOMERULAR FILTRATION RATE > 60.0 (>49); GLUCOSE, FASTING 111 MG/DL (74-106); MAGNESIUM LEVEL 1.7 MG/DL (1.8-2.4); PERCENT SATURATION 35.5 % (19.7-50.0); POTASSIUM SERUM 4.4 MMOL/L (3.5-5.1); SODIUM LEVEL 137 MMOL/L (136-145); THYROID STIMULATING HORMONE 0.888 uIU/ML (0.55-4.78); TOTAL IRON BINDING CAPACITY 304 UG/DL (250-425); TOTAL PROTEIN 6.8 G/DL (5.7-8.2)
[2023-04-17 10:50] LABS: BASO # 0.1 10^3/uL (0.0-0.2); BASO % 1.2 % (0.0-1.0); EOS # 0.2 10^3/uL (0.0-0.5); EOS % 2.1 % (0.0-3.0); HEMOGLOBIN 16.8 g/dl (13.5-17.5); LYMPH # 1.8 10^3/uL (1.5-5.0); LYMPH % 22.9 % (24.0-44.0); MEAN CORPUSCULAR HEMOGLOBIN 31.8 pg (27.0-33.0); MEAN CORPUSCULAR HGB CONC 33.1 g/dl (32.0-36.5); MEAN CORPUSCULAR VOLUME 96.2 fl (80.0-96.0); MONO # 0.8 10^3/uL (0.0-0.8); MONO % 9.9 % (2.0-8.0); NEUTROPHILS # 4.9 10^3/uL (1.5-8.5); NEUTROPHILS % 63.6 % (36.0-66.0); PLATELET COUNT, AUTOMATED 257 10^3/uL (150-450); RED BLOOD COUNT 5.28 10^6/uL (4.30-6.10); WHITE BLOOD COUNT 7.7 10^3/uL (4.0-10.0)
[2023-04-17 10:51] LABS: FOLATE 14.08 NG/ML (>5.4); VITAMIN B12 LEVEL 365 PG/ML (211-911)
[2023-04-17 10:59] LABS: HEMOGLOBIN A1c 4.9 % (4.0-6.0)
[2023-04-17 11:05] LABS: HEMATOCRIT 49.5 % (42.0-52.0)
[2023-04-17 11:31] LABS: ERYTHROCYTE SEDIMENTATION RATE 3 mm/hr (0-20)
== END ==
LOC: M PLALAB 08:13
PROVIDERS: ATTEND Physician Assistant
DX: J44.9 Chronic obstructive pulmonary disease, unspecified (principal); G47.9 Sleep disorder, unspecified; R63.4 Abnormal weight loss; R63.0 Anorexia; R63.1 Polydipsia; Z79.899 Other long term (current) drug therapy

== ENCOUNTER → 2023-05-31 | Outpatient (CLI) | payer MEDICARE ==
[~2023-05-31] MED LIST changes: +GASTROGRAFIN SOLUTION 30ML As Ordered ONE; +ISOVUE-370 76% 100ML VIAL As Ordered ONE
== END ==
LOC: M RAD 08:11
PROVIDERS: ATTEND Physician Assistant
DX: R97.20 Elevated prostate specific antigen [PSA] (principal); F17.298 Nicotine dependence, other tobacco product, with other nicotine-induced disorders; R10.84 Generalized abdominal pain; R63.4 Abnormal weight loss; Q44.6 Cystic disease of liver; K76.0 Fatty (change of) liver, not elsewhere classified; R93.5 Abnormal findings on diagnostic imaging of other abdominal regions, including retroperitoneum
CPT/HCPCS: 74177; Q9963; Q9967

== ENCOUNTER → 2023-08-21 | Outpatient (CLI) | payer MEDICARE ==
[~2023-08-21] MED LIST changes: -GASTROGRAFIN SOLUTION 30ML As Ordered ONE; -ISOVUE-370 76% 100ML VIAL As Ordered ONE
[2023-08-22 23:07] LABS: PSA TOTAL 10.1 ng/mL (0.0-4.0)
== END ==
LOC: M PLALAB 08:25
PROVIDERS: ATTEND Urology
DX: R97.20 Elevated prostate specific antigen [PSA] (principal)

== ENCOUNTER → 2023-09-10 | Outpatient (CLI) | payer MEDICARE ==
[2023-09-10 10:24] LABS: BASO # 0.1 10^3/uL (0.0-0.2); BASO % 1.2 % (0.0-1.0); EOS # 0.2 10^3/uL (0.0-0.5); EOS % 1.9 % (0.0-3.0); HEMATOCRIT 45.1 % (42.0-52.0); HEMOGLOBIN 15.4 g/dl (13.5-17.5); LYMPH # 1.8 10^3/uL (1.5-5.0); LYMPH % 21.6 % (24.0-44.0); MEAN CORPUSCULAR HEMOGLOBIN 32.6 pg (27.0-33.0); MEAN CORPUSCULAR HGB CONC 34.1 g/dl (32.0-36.5); MEAN CORPUSCULAR VOLUME 95.3 fl (80.0-96.0); MONO # 0.7 10^3/uL (0.0-0.8); MONO % 7.8 % (2.0-8.0); NEUTROPHILS # 5.6 10^3/uL (1.5-8.5); NEUTROPHILS % 67.1 % (36.0-66.0); PLATELET COUNT, AUTOMATED 265 10^3/uL (150-450); RED BLOOD COUNT 4.73 10^6/uL (4.30-6.10); WHITE BLOOD COUNT 8.4 10^3/uL (4.0-10.0)
[2023-09-10 10:36] LABS: PARTIAL THROMBOPLASTIN TIME 31.7 SECONDS (24.8-34.2); PROTHROMBIN TIME 12.9 SECONDS (12.5-14.5)
[2023-09-10 12:34] LABS: ALBUMIN 3.6 G/DL (3.2-5.2); ALKALINE PHOSPHATASE 126 U/L (46-116); ALT/SGPT 29 U/L (7.0-40); AST/SGOT 30 U/L (<34); BILIRUBIN,TOTAL 0.7 MG/DL (0.3-1.2); BLOOD UREA NITROGEN 12 MG/DL (9-23); CALCIUM LEVEL 9.6 MG/DL (8.3-10.6); CARBON DIOXIDE LEVEL 25 MMOL/L (20-31); CHLORIDE LEVEL 104 MMOL/L (98-107); CREATININE FOR GFR 0.54 MG/DL (0.70-1.30); GLOMERULAR FILTRATION RATE > 60.0 (>49); GLUCOSE, FASTING 98 MG/DL (74-106); POTASSIUM SERUM 4.2 MMOL/L (3.5-5.1); SODIUM LEVEL 137 MMOL/L (136-145); TOTAL PROTEIN 6.4 G/DL (5.7-8.2)
== END ==
LOC: M PLAIMG 07:21
PROVIDERS: ATTEND Physician Assistant
DX: G47.00 Insomnia, unspecified (principal); D69.9 Hemorrhagic condition, unspecified; M25.511 Pain in right shoulder; M54.2 Cervicalgia; M47.812 Spondylosis without myelopathy or radiculopathy, cervical region; M53.2X2 Spinal instabilities, cervical region; M19.011 Primary osteoarthritis, right shoulder

== ENCOUNTER → 2023-10-05 | Outpatient (REF) | payer MEDICARE, MEDICAID | LOC: M SMT PRO 10:56 | PROVIDERS: ATTEND Urology | DX: C61 Malignant neoplasm of prostate (principal) ==

== ENCOUNTER → 2023-11-12 | Outpatient (CLI) | payer MEDICARE, MEDICAID | LOC: M PLAIMG 07:10 | PROVIDERS: ATTEND Physician Assistant | DX: Z53.9 Procedure and treatment not carried out, unspecified reason (principal) ==

== ENCOUNTER → 2024-03-11 | Outpatient (REF) | payer MEDICARE, MEDICAID | LOC: M LAB REF 17:45 | PROVIDERS: ATTEND Nurse Practitioner Adult Health | DX: R63.4 Abnormal weight loss (principal) ==

== ENCOUNTER → 2024-04-25 | Outpatient (CLI) | payer MEDICARE, MEDICAID ==
[2024-04-25 12:59] LABS: ALBUMIN 3.9 G/DL (3.2-5.2); ALKALINE PHOSPHATASE 96 U/L (46-116); ALT/SGPT 37 U/L (7.0-40); AST/SGOT 29 U/L (<34); BILIRUBIN,TOTAL 0.5 MG/DL (0.3-1.2); BLOOD UREA NITROGEN 8 MG/DL (9-23); CALCIUM LEVEL 9.1 MG/DL (8.3-10.6); CARBON DIOXIDE LEVEL 27 MMOL/L (20-31); CHLORIDE LEVEL 107 MMOL/L (98-107); CREATININE FOR GFR 0.57 MG/DL (0.70-1.30); GLOMERULAR FILTRATION RATE > 60.0 (>49); GLUCOSE, FASTING 90 MG/DL (74-106); HEMATOCRIT 49.7 % (42.0-52.0); HEMOGLOBIN 17.3 g/dl (13.5-17.5); MEAN CORPUSCULAR HEMOGLOBIN 33.9 pg (27.0-33.0); MEAN CORPUSCULAR HGB CONC 34.8 g/dl (32.0-36.5); MEAN CORPUSCULAR VOLUME 97.3 fl (80.0-96.0); PLATELET COUNT, AUTOMATED 255 10^3/uL (150-450); POTASSIUM SERUM 3.9 MMOL/L (3.5-5.1); RED BLOOD COUNT 5.11 10^6/uL (4.30-6.10); SODIUM LEVEL 141 MMOL/L (136-145); TOTAL PROTEIN 6.8 G/DL (5.7-8.2); WHITE BLOOD COUNT 9.6 10^3/uL (4.0-10.0)
[2024-04-25 13:17] LABS: INR 1.07; PROTHROMBIN TIME 13.6 SECONDS (12.5-14.5)
== END ==
LOC: M PLAIMG 09:25
PROVIDERS: ATTEND Urology
DX: C61 Malignant neoplasm of prostate (principal); I70.0 Atherosclerosis of aorta; J98.4 Other disorders of lung; Z79.899 Other long term (current) drug therapy

== ENCOUNTER → 2024-06-02 | Outpatient (REF) | payer MEDICARE, MEDICAID ==
[~2024-06-02] MED LIST changes: +ADV100INH INH; +AMLOD/BENAZP PO; +ANOR1AER INH; +CIPR-249 PO; +COLA100C5 PO; -FLUT15.820; +FLUT15.820 NARES; +LOTR5CAP2 PO; +TRAZ-189 PO
== END ==
LOC: M SMT 09:33
PROVIDERS: ATTEND Urology
DX: Z01.818 Encounter for other preprocedural examination (principal); C61 Malignant neoplasm of prostate; N39.0 Urinary tract infection, site not specified

== ENCOUNTER 2024-06-10 05:58 | Day surgery (SDC) | payer MEDICARE, MEDICAID ==
[2024-06-10] VITALS (8 sets, daily range): BP systolic 129–158; BP diastolic 64–80; TEMP 97.2–98.3; O2SAT 92–95
[~2024-06-10] VITALS: Ht 167.6 cm; Wt 48.1 kg
[~2024-06-10 05:58] MED LIST changes: -ANOR1AER INH; -CIPR-249 PO; -COLA100C5 PO; -LOTR5CAP2 PO
[2024-06-10] MEDS ORDERED: LR 1,000 ML IV SCH (07:25)
[2024-06-10] MEDS ORDERED: ONDANSETRON 4MG 2ML VIAL IV PRN ×2 (07:30→11:25)
[2024-06-10] MEDS ORDERED: ACETAMINOPHEN TAB 650MG DOSE (2X325MG) PO PRN (07:30)
[2024-06-10] MEDS ORDERED: ALBUTEROL 90 MCG/ACT 8GM HFA INHALER INH PRN (07:30)
[2024-06-10] MEDS: ceFAZolin SOD 2 GM in IV 1 EA IV ONE (07:38)
[2024-06-10] MEDS ORDERED: ONDANSETRON 4MG 2ML VIAL As Ordered ONE (07:45)
[2024-06-10] MEDS ORDERED: SUGAMMADEX SODIUM 500 MG/5 ML VIAL (BRIDION) As Ordered ONE (07:45)
[2024-06-10] MEDS ORDERED: ROCURONIUM BROMIDE 50MG/5ML VIAL As Ordered ONE (07:45)
[2024-06-10] MEDS ORDERED: MIDAZOLAM INJ 2MG/2ML VIAL As Ordered ONE (07:45)
[2024-06-10] MEDS ORDERED: LIDOCAINE 2% 100MG/5ML SDV (FOR ANES.) As Ordered ONE (07:45)
[2024-06-10] MEDS ORDERED: propofoL 200 MG/20 ML VIAL As Ordered ONE (07:45)
[2024-06-10] MEDS ORDERED: fentaNYL 100 MCG/2 ML INJECTION As Ordered ONE (07:45)
[2024-06-10] MEDS: HEPARIN SOD (PORCINE) 5000UNITS/ML 1ML VIAL/SYRINGE SQ ONE (08:00)
[2024-06-10] MEDS ORDERED: ACETAMINOPHEN 1000MG 100ML IV BAG As Ordered ONE (08:03)
[2024-06-10] MEDS ORDERED: hydrALAZINE 20MG/ML 1ML VIAL As Ordered ONE (08:12)
[2024-06-10] MEDS ORDERED: dexmedeTOMIDine (4MCG/ML)200MCG/50ML BTL (PRECEDEX) As Ordered ONE (09:45)
[2024-06-10] MEDS: LIDOCAINE 1% SDV 30ML VIAL As Ordered ONE (11:15)
[2024-06-10] MEDS ORDERED: oxyCODONE 5MG TAB PO PRN (11:25)
[2024-06-10] MEDS ORDERED: fentaNYL 100 MCG/2 ML INJECTION IV PRN (11:25)
[2024-06-10 12:04] LABS: HEMATOCRIT 47.8 % (42.0-52.0); HEMOGLOBIN 16.4 g/dl (13.5-17.5); MEAN CORPUSCULAR HEMOGLOBIN 33.8 pg (27.0-33.0); MEAN CORPUSCULAR HGB CONC 34.3 g/dl (32.0-36.5); MEAN CORPUSCULAR VOLUME 98.6 fl (80.0-96.0); PLATELET COUNT, AUTOMATED 220 10^3/uL (150-450); RED BLOOD COUNT 4.85 10^6/uL (4.30-6.10); WHITE BLOOD COUNT 10.7 10^3/uL (4.0-10.0)
[2024-06-10] MEDS: HYDROMORPHONE HCL 0.5 MG/ 0.5 ML SYRINGE IV PRN (12:15)
[2024-06-10 12:35] LABS: BLOOD UREA NITROGEN 13 MG/DL (9-23); CALCIUM LEVEL 8.4 MG/DL (8.3-10.6); CARBON DIOXIDE LEVEL 26 MMOL/L (20-31); CHLORIDE LEVEL 104 MMOL/L (98-107); CREATININE FOR GFR 0.62 MG/DL (0.70-1.30); GLOMERULAR FILTRATION RATE > 60.0 (>49); GLUCOSE, FASTING 153 MG/DL (74-106); POTASSIUM SERUM 4.3 MMOL/L (3.5-5.1); SODIUM LEVEL 135 MMOL/L (136-145)
[2024-06-10] MEDS: NS 1,000 ML IV SCH (13:06)
[2024-06-10] MEDS: DOCUSATE SODIUM 100MG CAPSULE PO SCH (13:06)
[2024-06-10] MEDS ORDERED: LOTR5CAP2 PO (13:09)
[2024-06-10] MEDS ORDERED: ANOR1AER INH (13:12)
[2024-06-10] MEDS ORDERED: HOME MED LIST COMPLETE! XX SCH (13:25)
[2024-06-10] MEDS: ceFAZolin SOD 1 GM in D5W MINI-BAG PLUS 50 ML IV SCH (16:09)
[2024-06-10] MEDS: LR 1,000 ML IV SCH (16:09)
[2024-06-10] MEDS: ADVAIR HFA 115/21MCG INHALER INH SCH (20:07)
[2024-06-10] MEDS: traZODone 100 MG TAB PO SCH (20:20)
[2024-06-10] MEDS: HEPARIN SOD (PORCINE) 5000UNITS/ML 1ML VIAL/SYRINGE SC SCH (20:21)
[2024-06-11 00:19] VITALS: BP 136/66; TEMP 97.5; O2SAT 93
[2024-06-11 04:00] VITALS: BP 139/67; TEMP 98.1; O2SAT 92
[2024-06-11 06:28] LABS: HEMATOCRIT 38.8 % (42.0-52.0); MEAN CORPUSCULAR HEMOGLOBIN 33.5 pg (27.0-33.0); MEAN CORPUSCULAR HGB CONC 34.3 g/dl (32.0-36.5); MEAN CORPUSCULAR VOLUME 97.7 fl (80.0-96.0); PLATELET COUNT, AUTOMATED 179 10^3/uL (150-450); RED BLOOD COUNT 3.97 10^6/uL (4.30-6.10); WHITE BLOOD COUNT 7.9 10^3/uL (4.0-10.0)
[2024-06-11 06:29] LABS: HEMOGLOBIN 13.3 g/dl (13.5-17.5)
[2024-06-11 06:43] LABS: BLOOD UREA NITROGEN 10 MG/DL (9-23); CALCIUM LEVEL 8.2 MG/DL (8.3-10.6); CARBON DIOXIDE LEVEL 29 MMOL/L (20-31); CHLORIDE LEVEL 104 MMOL/L (98-107); GLOMERULAR FILTRATION RATE > 60.0 (>49); GLUCOSE, FASTING 87 MG/DL (74-106); POTASSIUM SERUM 3.8 MMOL/L (3.5-5.1); SODIUM LEVEL 135 MMOL/L (136-145)
[2024-06-11 08:00] VITALS: BP 133/67; TEMP 97.9; O2SAT 92
[2024-06-11] MEDS: PERCOCET 5MG/325MG TAB PO PRN ×2 (08:03→14:49)
[2024-06-11] MEDS: SERTRALINE HCL 25 MG TABLET PO SCH (08:04)
[2024-06-11] MEDS ORDERED: FLUTICASONE PROP 0.05% NASAL SPRAY 16 GM (FLONASE) NARES PRN (09:00)
[2024-06-11 12:00] VITALS: BP 131/69; TEMP 97.5; O2SAT 95
[2024-06-11 16:00] VITALS: BP 140/75; TEMP 97.5; O2SAT 92
[2024-06-11] MEDS ORDERED: PERCOCET PO (16:34)
[2024-06-11] MEDS ORDERED: COLA100C5 PO (16:34)
[2024-06-11] MEDS ORDERED: CIPR-249 PO (16:34)
== END 2024-06-11 17:00 | disposition home or self-care (01) ==
LOC: M SDC 05:58 → UNDOADMIN 05:58 → M OR 05:58 → EDSTATUS 07:30 → M OR 12:40 → M MS5PR 12:40 → M SDC 06-11 17:00
PROVIDERS: ATTEND Urology
DX: C61 Malignant neoplasm of prostate (principal); I10 Essential (primary) hypertension; J44.9 Chronic obstructive pulmonary disease, unspecified; F17.290 Nicotine dependence, other tobacco product, uncomplicated; Z79.899 Other long term (current) drug therapy; Z79.51 Long term (current) use of inhaled steroids; Z88.8 Allergy status to other drugs, medicaments and biological substances
CPT/HCPCS: 36415; 55866; 80048; 85027; 86850; 86900; 86901; 88309; 94640; J0131; J0360; J0665; J0690; J1100; J1170; J2250; J2405; J3010